=== PATIENT | male | born 1945 | race Caucasian/White ===

== ENCOUNTER → 2017-11-28 08:28 | Outpatient (CLI) | payer MEDICARE, OTHER ==
[~2017-11-28 08:28] MED LIST: ADVAIR 250/501 DISK INH; ASPIRIN EC81 M1 PO; FLOMAX0.4 MG PO; PROAIR HFA8.5 GM INH; PROTONIX40 MG PO; ZOCOR40 MG PO
== END | disposition home or self-care (01) ==
LOC: D.MRI 08:28
DX: M75.41 Impingement syndrome of right shoulder (principal)

== ENCOUNTER 2017-12-27 07:20 | Outpatient (CLI) | payer MEDICARE, OTHER ==
[2017-12-27] MEDS ORDERED: ADVAIR 250/501 DISK INH (11:36)
[2017-12-27] MEDS ORDERED: PROTONIX40 MG PO (11:37)
[2017-12-27] MEDS ORDERED: ASPIRIN EC81 M1 PO (11:37)
[2017-12-27] MEDS ORDERED: PROAIR HFA8.5 GM INH (11:37)
[2017-12-27] MEDS ORDERED: ZOCOR40 MG PO (11:38)
[2017-12-27] MEDS ORDERED: FLOMAX0.4 MG PO (11:39)
[2017-12-27 12:20] LABS: HEMATOCRIT 42.1 % (42.0-54.0); MCHC 33.3 g/dL (31.0-37.0); MCV 90.1 fL (80.0-100.0); MEAN PLATELET VOLUME 10.4 fL (7.4-10.4); RBC 4.67 10x6/uL (4.20-6.10); WBC 4.1 10x3/uL (4.8-10.8)
[2017-12-27 12:51] LABS: ANION GAP 11.6 mmol/L (8-16); CALCIUM 9.1 mg/dL (8.5-10.1); CARBON DIOXIDE 24.3 mmol/L (21.0-32.0); CREATININE - SERUM 1.7 mg/dL (0.6-1.3); POTASSIUM - SERUM 3.9 mmol/L (3.5-5.1)
[2018-01-18 11:05] VITALS: Wt 113.4 kg
== END 2017-12-27 07:21 | disposition home or self-care (01) ==
LOC: D.OPS 07:20 → EDSTATUS 12-28 12:30 → D.PAN 12-28 12:30
PROVIDERS: Anesthesiology
DX: M19.019 Primary osteoarthritis, unspecified shoulder (principal); Z01.810 Encounter for preprocedural cardiovascular examination; Z01.811 Encounter for preprocedural respiratory examination; Z01.812 Encounter for preprocedural laboratory examination; Z53.9 Procedure and treatment not carried out, unspecified reason

== ENCOUNTER 2018-01-18 09:55 | Day surgery (SDC) | payer MEDICARE, OTHER ==
[2018-01-17 15:07] LABS: HEMATOCRIT 39.5 % (42.0-54.0); HEMOGLOBIN 13.5 g/dL (13.5-17.5); MCH 30.3 pg (26.0-34.0); MCHC 34.2 g/dL (31.0-37.0); MCV 88.6 fL (80.0-100.0); MEAN PLATELET VOLUME 9.8 fL (7.4-10.4); RBC 4.46 10x6/uL (4.20-6.10); RDW 14.3 % (11.5-14.5); WBC 5.1 10x3/uL (4.8-10.8)
[2018-01-17 15:35] LABS: ANION GAP 13.3 mmol/L (8-16); CALCIUM 9.1 mg/dL (8.5-10.1); CARBON DIOXIDE 24.8 mmol/L (21.0-32.0); CREATININE - SERUM 1.7 mg/dL (0.6-1.3); POTASSIUM - SERUM 4.1 mmol/L (3.5-5.1)
[~2018-01-18] VITALS: Ht 172.7 cm; Wt 113.4 kg
--- NOTE | ~2018-01-18 | OP ---
PATIENT NAME: EMIR MORAN MEDICAL RECORD: [id number] :49 LOCATION:D.[facility] ADMISSION DATE: SURGEON: REECE KUHN MD DATE OF OPERATION: 01/18/2018 PREOPERATIVE DIAGNOSIS: Recurrent impingement syndrome of the right shoulder. POSTOPERATIVE DIAGNOSIS: Recurrent impingement syndrome of the right shoulder. PROCEDURES: 1. Right shoulder arthroscopic subacromial decompression, acromioplasty, bursectomy. 2. Right shoulder distal clavicle excision. SURGEON: Reece Kuhn MD ANESTHESIA: General. INTRAOPERATIVE COMPLICATIONS: None. SUMMARY OF PATHOLOGIC FINDINGS: The patient has combination of both subcoracoid and subacromial impingement with some excoriation of both the supraspinatus as well as the subscapularis. No full-thickness tearing is noted. OPERATIVE SUMMARY IN DETAIL: After obtaining the appropriate preoperative orthopaedic surgery consent as well as anesthetic consultation, evaluation, and clearance, the patient was brought to the operating room and placed on the operating table in the supine position. After adequate general laryngeal mask airway was administered, the patient was placed in a left lateral decubitus position. All pressure points were well padded to include down leg peroneal pad as well as axillary roll. The patient was held firmly to the operating table using the vacuum pack suction system. Right upper extremity and shoulder were then prepped and draped in routine sterile fashion. The arm was held in Arthrex arm holding device at 30 degrees of forward flexion, 30 degrees of abduction, 10 pounds of traction laterally. Arthroscopy was established in the glenohumeral joint from the posterior portal. Anterior portal was established through the anterior safe interval. Diagnostic arthroscopy did reveal the above findings. No rotator cuff tearing was noted. The glenohumeral joint was relatively normal without tears in subscap and supraspinatus on the articular side. Attention was turned to the subacromial space. While in the subacromial space, a 3.5 full radius resector in conjunction with Meally tissue ablation system was utilized to denude the undersurface of the acromion of all soft tissue elements. A 5-0 bur was used to perform acromioplasty at the level of acromioclavicular joint and release the coracoacromial ligament. Through a separate arthroscopic portal anteriorly, distal clavicle was excised for 1 cm. At this point, further diagnostic arthroscopy did show the roughening of the subscapularis. Dynamic arthroscopy showed that there was impingement of the subscapularis anteriorly and the coracoid. The coracoid was denuded with the Meally surface tissue ablation system. The bur was utilized to complete subcoracoid decompression. Having completed this, arthroscopy portals were closed in routine interrupted fashion using 4-0 Prolene. Sterile dressings were applied. The patient was awakened and taken to recovery room in stable condition. All final needle and sponge counts were correct. OPERATIVE REPORT [id number] EMIR MORAN TRANSINT:[id number] Voice Confirmation ID: [id number] DOCUMENT ID: [id number] 02/21/2018 Edited for right/left, dmheather. HATTIE RAMIREZ, REECE WILKS at 1356 CC: [id number] DICTATION DATE: 01/18/18 1334 MULTINEEDLE SHIRRER: 01/18/18 1407 [facility] [place] 01/18/18 [address] [place] [address]
[2018-01-18 11:05] VITALS: BP 118/99; Ht 172.7 cm; Wt 113.4 kg
[2018-01-18] MEDS ORDERED: HYDROCODONE-APA1 TAB PO (13:36)
== END 2018-01-18 15:35 | disposition home or self-care (01) ==
LOC: D.OPS 09:55 → D.PAN 18:15 → D.OPS 18:15
PROVIDERS: Anesthesiology
DX: M75.42 Impingement syndrome of left shoulder (principal); Z01.812 Encounter for preprocedural laboratory examination

== ENCOUNTER 2019-01-31 13:06 | Inpatient (IN) | payer MEDICARE, OTHER ==
[~2019-01-31] VITALS: Ht 172.7 cm; Wt 100.0 kg
[~2019-01-31 13:06] MED LIST changes: +HYDROCODONE-APA1 TAB PO; -ZOCOR40 MG PO; +ZOCOR80 MG PO
--- NOTE | 2019-01-31 13:22 | NUR ---
TRANSFER FROM ADMISSIONS BY W/C. OREINTED TO ROOM. CALL LIGHT IN REACH. WILL CONT. PLAN OF CARE.
[2019-01-31] MEDS ORDERED: K-DUR20 MEQ PO (13:50)
[2019-01-31] MEDS ORDERED: MAXZIDE 75/501 TAB PO (13:51)
[2019-01-31] MEDS ORDERED: FUROSEMIDE20 MG PO (13:51)
[2019-01-31 13:54] VITALS: BP 121/78; BMI 33.5
[2019-01-31 14:11] LABS: BASOPHILS 0.2 % (0-2); EOSINOPHILS 0.7 % (0-7); HEMATOCRIT 45.8 % (42.0-54.0); HEMOGLOBIN 16.5 g/dL (13.5-17.5); IMMATURE GRANULOCYTES 0.5 % (0-5); LYMPHOCYTES 6.9 % (15-50); MCH 31.1 pg (26.0-34.0); MCV 86.3 fL (80.0-100.0); MEAN PLATELET VOLUME 10.8 fL (7.4-10.4); NEUTROPHILS 80.7 % (40-80); RBC 5.31 10x6/uL (4.20-6.10); RDW 15.1 % (11.5-14.5); WBC 9.1 10x3/uL (4.8-10.8)
[2019-01-31 14:14] LABS: PLATELET COUNT 124 10x3/uL (130-400)
[2019-01-31 14:35] LABS: ALKALINE PHOSPHATASE 95 U/L (46-116); ALT (SGPT) 35 U/L (10-68); BILIRUBIN - TOTAL 1.34 mg/dL (0.2-1.3); CALC OSMOLALITY 283 mosm/kg (275-300); CALCIUM 8.1 mg/dL (8.5-10.1); CARBON DIOXIDE 20.4 mmol/L (21.0-32.0); CHLORIDE - SERUM 102 mmol/L (98-107); CKMB 2.5 U/L (0.0-3.6); CREATINE KINASE 229 UL (21-232); GLUCOSE 109 mg/dL (74-106); POTASSIUM - SERUM 3.1 mmol/L (3.5-5.1); PROTEIN - SERUM 5.8 g/dL (6.4-8.2); SODIUM 137 mmol/L (136-145); UREA NITROGEN 37 mg/dL (7-18); eGFR NON AFRICAN AMERICAN 35 mL/min (90-120)
[2019-01-31 14:36] LABS: TROPONIN-I < 0.017 ng/mL (0.000-0.060)
[2019-01-31 15:59] LABS: AMYLASE - SERUM 40 U/L (25-115); LIPASE 256 U/L (73-393)
--- NOTE | 2019-01-31 17:50 | NUR ---
REFUSES SCDS AT THIS TIME.
--- NOTE | 2019-01-31 19:09 | NUR ---
RESUMING PATIENT CARE. PATIENT IS ALERT AND ORIENTED, RESTING COMFORTABLY IN BED. RESPIRATIONS ARE EVEN AND UNLABORED. NO S/S OF DISTRESS. NO C/O PAIN. CALL LIGHT WITHIN REACH. WILL CPOC.
[2019-01-31 20:00] VITALS: BP 134/71
[2019-01-31 20:01] LABS: CKMB 2.1 U/L (0.0-3.6); CREATINE KINASE 208 UL (21-232); TROPONIN-I < 0.017 ng/mL (0.000-0.060)
[2019-02-01] VITALS: BP 111/76
[2019-02-01 02:13] LABS: BASOPHILS 0 % (0-2); EOSINOPHILS 0.3 % (0-7); HEMATOCRIT 43.8 % (42.0-54.0); HEMOGLOBIN 15.5 g/dL (13.5-17.5); IMMATURE GRANULOCYTES 0.5 % (0-5); LYMPHOCYTES 5.7 % (15-50); MCH 30.6 pg (26.0-34.0); MCHC 35.4 g/dL (31.0-37.0); MCV 86.6 fL (80.0-100.0); MEAN PLATELET VOLUME 10.8 fL (7.4-10.4); NEUTROPHILS 91.5 % (40-80); PLATELET COUNT 112 10x3/uL (130-400); RBC 5.06 10x6/uL (4.20-6.10)
[2019-02-01 02:17] LABS: WBC 6.4 10x3/uL (4.8-10.8)
[2019-02-01 02:33] LABS: ALBUMIN 2.7 g/dL (3.4-5.0); ALKALINE PHOSPHATASE 93 U/L (46-116); ALT (SGPT) 38 U/L (10-68); BILIRUBIN - DIRECT 0.21 mg/dL (0.00-0.30); BILIRUBIN - INDIRECT 0.66 mg/dL (0.00-1.00); BILIRUBIN - TOTAL 0.87 mg/dL (0.2-1.3); CALCIUM 8.5 mg/dL (8.5-10.1); CARBON DIOXIDE 22.3 mmol/L (21.0-32.0); CHLORIDE - SERUM 102 mmol/L (98-107); CKMB 1.7 U/L (0.0-3.6); CREATINE KINASE 184 UL (21-232); CREATININE - SERUM 2.2 mg/dL (0.6-1.3); MAGNESIUM - SERUM 2.2 mg/dL (1.8-2.4); PROTEIN - SERUM 6.2 g/dL (6.4-8.2); SODIUM 137 mmol/L (136-145); TROPONIN-I 0.023 ng/mL (0.000-0.060); UREA NITROGEN 38 mg/dL (7-18); eGFR NON AFRICAN AMERICAN 31 mL/min (90-120)
[2019-02-01 02:35] LABS: CALC OSMOLALITY 287 mosm/kg (275-300); GLUCOSE 189 mg/dL (74-106); PHOSPHOROUS 1.4 mg/dL (2.5-4.9)
[2019-02-01 04:00] VITALS: BP 115/65
[2019-02-01 08:37] VITALS: BP 120/76
[2019-02-01 11:00] VITALS: BMI 33.4
[2019-02-01 11:55] LABS: AMYLASE - SERUM 42 U/L (25-115); LIPASE 260 U/L (73-393)
[2019-02-01 12:08] VITALS: BP 136/76
[2019-02-01 17:16] VITALS: BP 121/64
[2019-02-01 20:00] VITALS: BP 122/58
[2019-02-02] VITALS: BP 124/65
[2019-02-02 04:00] VITALS: BP 135/84
[2019-02-02 05:38] LABS: BASOPHILS 0 % (0-2); EOSINOPHILS 0 % (0-7); HEMATOCRIT 40.1 % (42.0-54.0); HEMOGLOBIN 13.8 g/dL (13.5-17.5); IMMATURE GRANULOCYTES 0.2 % (0-5); LYMPHOCYTES 3.7 % (15-50); MCH 29.7 pg (26.0-34.0); MCHC 34.4 g/dL (31.0-37.0); MCV 86.4 fL (80.0-100.0); MONOCYTES 3.3 % (2-11); NEUTROPHILS 92.8 % (40-80); RBC 4.64 10x6/uL (4.20-6.10); RDW 14.9 % (11.5-14.5); WBC 12.6 10x3/uL (4.8-10.8)
[2019-02-02 05:39] LABS: PLATELET COUNT 102 10x3/uL (130-400)
[2019-02-02 05:54] LABS: MAGNESIUM - SERUM 2.2 mg/dL (1.8-2.4)
[2019-02-02 05:57] LABS: PHOSPHOROUS 2.9 mg/dL (2.5-4.9)
--- NOTE | 2019-02-02 07:15 | NUR ---
RECEIVED PT IN BED AAOX4 GENERALIZED WEAKNESS NOTED RESP UNLABORED SKIN W/D DENIES ANY NEEDS AT THIS TIME
[2019-02-02 08:13] VITALS: BP 142/79
[2019-02-02 12:57] LABS: ALBUMIN 2.7 g/dL (3.4-5.0); ANION GAP 18.6 mmol/L (8-16); BILIRUBIN - TOTAL 0.46 mg/dL (0.2-1.3); CALCIUM 8.7 mg/dL (8.5-10.1); CARBON DIOXIDE 17.5 mmol/L (21.0-32.0); CREATININE - SERUM 1.8 mg/dL (0.6-1.3); POTASSIUM - SERUM 4.1 mmol/L (3.5-5.1); PROTEIN - SERUM 5.7 g/dL (6.4-8.2)
[2019-02-02 13:18] VITALS: BP 126/78
[2019-02-02 17:19] VITALS: BP 138/72
--- NOTE | 2019-02-02 19:51 | NUR ---
INITIAL ROUNDS AND ASSESSMENT COMPLETED. PT RESTING IN BED. NO DISTRESS. CALL LIGHT IN REACH. SEE ASSESSMENT. CALL LIGHT IN REACH.
[2019-02-02 20:00] VITALS: BP 125/56
--- NOTE | 2019-02-02 20:22 | NUR ---
BEDTIME MEDS GIVEN. PT RESTING WITH NO DISTRESS. FEELS TIRED AND ONLY LIKE HE IS MINIMALLY IMPROVING. CALL LIGHT IN REACH. NEW ABT UP AND INFUSING.
--- NOTE | 2019-02-02 20:39 | NUR ---
REMOVED PIV TO LEFT A/C DUE TO NO LONGER PATENT. PT STILL HAS IV TO RIGHT WRIST WITH NS @ 75ML/HR INFUSING AND IV ABT NOW. HS SNACK PROVIDED. PT CURRENTLY SITTING ON SIDE OF BED ENJOYING HIS SNACK.
[2019-02-03] VITALS: BP 132/63
[2019-02-03 04:00] VITALS: BP 118/65
--- NOTE | 2019-02-03 04:52 | NUR ---
PT HAS RESTED THROUGH THE NIGHT. NO CHANGE FROM INITIAL SHIFT ASSESSMENT. IVF INFUSING. MONITOR AND CPOC. CALL LIGHT IN REACH.
[2019-02-03 05:22] LABS: BASOPHILS 0 % (0-2); EOSINOPHILS 0 % (0-7); HEMATOCRIT 38.6 % (42.0-54.0); IMMATURE GRANULOCYTES 0.2 % (0-5); LYMPHOCYTES 2.6 % (15-50); MCH 29.5 pg (26.0-34.0); MCHC 33.7 g/dL (31.0-37.0); MCV 87.5 fL (80.0-100.0); MEAN PLATELET VOLUME 12.2 fL (7.4-10.4); MONOCYTES 2.2 % (2-11); RBC 4.41 10x6/uL (4.20-6.10); RDW 14.7 % (11.5-14.5); WBC 10.2 10x3/uL (4.8-10.8)
[2019-02-03 05:34] LABS: PLATELET COUNT 102 10x3/uL (130-400)
[2019-02-03 05:43] LABS: ALBUMIN 2.6 g/dL (3.4-5.0); BILIRUBIN - TOTAL 0.23 mg/dL (0.2-1.3); CALCIUM 8.1 mg/dL (8.5-10.1); CREATININE - SERUM 1.7 mg/dL (0.6-1.3); PHOSPHOROUS 3.3 mg/dL (2.5-4.9); PROTEIN - SERUM 5.1 g/dL (6.4-8.2)
--- NOTE | 2019-02-03 07:15 | NUR ---
RECEIVED PT IN BED EYES CLOSED RESP UNLABORED SKIN W/D NAD NOTED
[2019-02-03 08:51] VITALS: BP 116/62
--- NOTE | 2019-02-03 09:30 | NUR ---
INSPECTOR FLOOR SUB ASSEMBLY OFFERED PT SHOWER AND BED CHANGE PT STATED MAYBE LATER
--- NOTE | 2019-02-03 10:45 | NUR ---
PT'S DAUGHTER CAME TO THE DESK STATES HER FATHER HAS NOT HAD A BATH SINCE HE HAS BEEN HERE I ASSURED HER HIS BED WOULD BE CHANGED AND PT WOULD HAVE A BATH MIGUEL TENORIO SAY PT ALWAYS SAYS WAIT TILL LATER
--- NOTE | 2019-02-03 11:56 | NUR ---
PT HAD SHOWER TOLERATED WELL PUT SAME SHORTS BACK ON THAT HE TOOK OFF LINENS CHANGED
[2019-02-03 12:21] VITALS: BP 133/76
[2019-02-03 16:57] VITALS: BP 111/65
--- NOTE | 2019-02-03 19:52 | NUR ---
INITIAL ROUNDS AND ASSESSMENT COMPLETED. PT RESTING IN BED. NO DISTRESS. MONITOR AND CPOC.
[2019-02-03 20:15] VITALS: BP 129/60
[2019-02-04] VITALS: BP 131/59
--- NOTE | 2019-02-04 00:28 | NUR ---
ROUSES UP EASILY FOR IV SOLUMEDROL VIA LEFT A/C PIV. SALINE LOCKED IV. PT DOES NOT WANT TO BE CONNECTED TO IVF DURING THE NIGHT WHILE GOING TO THE BATHROOM. MONITOR AND CPOC.
[2019-02-04 05:18] LABS: HEMATOCRIT 38.9 % (42.0-54.0); HEMOGLOBIN 13.3 g/dL (13.5-17.5); MCH 29.9 pg (26.0-34.0); MCHC 34.2 g/dL (31.0-37.0); MCV 87.4 fL (80.0-100.0); MEAN PLATELET VOLUME 12.3 fL (7.4-10.4); RBC 4.45 10x6/uL (4.20-6.10); RDW 15.1 % (11.5-14.5); WBC 8.6 10x3/uL (4.8-10.8)
[2019-02-04 05:42] LABS: PLATELET COUNT 50 10x3/uL (130-400)
[2019-02-04 06:24] LABS: ALBUMIN 2.8 g/dL (3.4-5.0); BILIRUBIN - TOTAL 0.24 mg/dL (0.2-1.3); CARBON DIOXIDE 21.3 mmol/L (21.0-32.0); CREATININE - SERUM 1.7 mg/dL (0.6-1.3); MAGNESIUM - SERUM 2.2 mg/dL (1.8-2.4); PHOSPHOROUS 3.1 mg/dL (2.5-4.9); POTASSIUM - SERUM 4.3 mmol/L (3.5-5.1); PROTEIN - SERUM 5.7 g/dL (6.4-8.2)
[2019-02-04 07:53] VITALS: BP 123/55
[2019-02-04 08:40] LABS: LYMPHOCYTES 5 % (15-50); MONOCYTES 3 % (2-11); NEUTROPHILS 90 % (40-80); PLATELET ESTIMATE DECREASED
--- NOTE | 2019-02-04 09:50 | EC ---
PATIENT:EMIR MORAN DATE OF SERVICE: 01/31/19 SEX: M MEDICAL RECORD: [id number] DATE OF : [birth year] LOCATION:D.M2 D.211 AGE OF PATIENT: 73 ADMISSION DATE: 01/31/19 REFERRING PHYSICIAN: INTERPRETING PHYSICIAN: LLOYD DIAZ MD ECHOCARDIOGRAM REPORT ECHO CHARGES 4 ECHO COMPLETE Date: 02/01/19 CLINICAL DIAGNOSIS: ECHOCARDIOGRAPHIC MEASUREMENTS (adult normal given) AC root (d.<3.7cm) 2.5 cm LV Septum d (<1.2 cm> 0.6 cm Valve Excursion 1.3 cm LV Septum (systole) 1.1 cm Left Atria (s.<4.0cm> 3.3 cm LVPW d(<1.2cm) 1.5 cm RV (d.<2.3cm) 2.1 cm LVPW (sytole) 1.6 cm LV diastole(<5.6CM) 5.9 cm MV E-F(>70mm/sec) cm LV systole 4.9 cm LVOT Diameter 2.0 cm MV exc.(>10mm) cm Est.ejection fraction (50-75%) % DOPPLER: LVIT cm/sec A 61 cm/sec E 41 cm/sec LA cm/sec RVSP 17.4 mmHg LVOT 72 cm/sec AOP1/2T m/s Asc. Ao 89 cm/sec RVOT 87 cm/sec RA cm/sec PA 92 cm/sec AV Gradient Peak 3.2 mmHg AV Mean 2.1 mmHg AV Area 2.0 cm MV Gradient Peak 2.9 mmHg MV Mean 0.9 mmHg MV Area cm COMMENTS: Mine Utility Operator: Carlos SANTOS Extruder Operator Helper: 3 Dr. Fish TAPE# PACS Pericardial Effusion N DATE OF SERVICE: 02/01/2019 ECHOCARDIOGRAM DATE OF SERVICE: 02/01/2019 FINDINGS: 1. Left ventricular chamber size is mildly dilated. Left ventricular systolic function is mildly depressed at 45% to 50%. 2. Left atrium, right atrium, and right ventricle chamber sizes are within ECHOCARDIOGRAM REPORT [id number] EMIR MORAN normal limits. 3. Valvular structures have normal structure and motion. 4. Doppler interrogation reveals only trace mitral regurgitation, no other valvular insufficiency or stenosis, and pulmonary systolic pressure is normal estimated at 17 mmHg. 5. No evidence of pericardial effusion or left ventricular thrombus. TRANSINT:[id number] Voice Confirmation ID: [id number] DOCUMENT ID: [id number] LLOYD DIAZ MD at 0950 CC: [id number] DICTATION DATE: 02/01/19 1431 CLERICAL SPECIALIST: 02/01/19 1530 ADM IN [facility] [address] [place] [address]
--- NOTE | 2019-02-04 10:12 | NUR ---
TELEMETRY ST 109. UP AMBULATING HALLWAY WITH PT ASSIST ON RA. 02 SAT 97% WILL CONT. PLAN OF CARE.
[2019-02-04 12:20] VITALS: BP 124/57
--- NOTE | 2019-02-04 13:01 | MORECARE ---
CASE MANAGEMENT DISCHARGE SUMMARY PATIENT: EMIR MORAN UNIT: [id number] ADM DATE: 01/31/19 AGE: 73 : 47 SEX: M ROOM/BED: D.2114 AUTHOR: CINTIA SHEIKH PHYSICIAN: REFERRING PHYSICIAN: EFE SWANSON MD DATE OF SERVICE: 02/04/19 Discharge Plan Patient Name: EMIR MORAN Facility: [facility]:[place] : 1945 Planned Disposition: Home Anticipated Discharge Date: Discharge Date: Expected LOS: Initial Reviewer: [email or web address] Initial Review Date: 02/04/2019 Generated: 02/04/19 2:01 pm Patient Name: EMIR MORAN Page [id number] at 1301 All edits/amendments must be made on the electronic document DICTATION DATE: 02/04/19 1301 OAKES MACHINE OPERATOR: BARBARA 02/04/19 1301 RPT#: [id number] DC DATE: STATUS: ADM IN [facility] [address] [place] [address] END OF REPORT
--- NOTE | 2019-02-04 13:05 | NUR ---
NEW IV STARTED TO LEFT AC BY ANJANA RIVERA RN AND FLUSHED WITH NS. LINE IS PATENT.
--- NOTE | 2019-02-04 13:11 | MORECARE ---
CASE MANAGEMENT DISCHARGE SUMMARY PATIENT: EMIR MORAN UNIT: [id number] ADM DATE: 01/31/19 AGE: 73 : 47 SEX: M ROOM/BED: D.2884 AUTHOR: KORI,DOC PHYSICIAN: REFERRING PHYSICIAN: EFE SWANSON MD DATE OF SERVICE: 02/04/19 Discharge Plan Patient Name: EMIR MORAN Facility: [facility]:[place] : 1945 Planned Disposition: Home Anticipated Discharge Date: Discharge Date: Expected LOS: Initial Reviewer: [email or web address] Initial Review Date: 02/04/2019 Generated: 02/04/19 2:10 pm Comments DCP- Discharge Planning Updated by [email or web address]: Francy Martines on 02/04/19 12:[address] Patient Name: EMIR MORAN Admission Status: Elective Accout number: [id number] Admission Date: 01-31-2019 : 1945 Admission Diagnosis:DEHYDRATION Attending: EFE SWANSON Current LOS: 4 Anticipated DC Date: Planned Disposition: Home Primary Insurance: MEDICARE A & B Discharge Planning Comments: CM met with patient to complete initial dc planning assessment. CM educated patient on the CM role and verbal consent given by patient to complete assessment. CM verified patient's address, phone number, and emergency contact phone numbers. Patient lives at home alone and reports he is independent in his care. At discharge patient plans to return home and feels this is a safe discharge. CM discussed availability of home health, rehab services, and medical equipment. Patient denied known discharge needs at this time.. . CM will continue to follow and will assist as needed with dc plans/needs. Shipper Receiver: Francy Martines DCPIA - Discharge Planning Initial Assessment Updated by [email or web address]: Francy Martines on 02/04/19 1:02 pm * Is the patient Alert and Oriented? Yes * How many steps to enter\exit or inside your home? 3-4 * PCP [facility] * Pharmacy [facility] * Preadmission Environment Home Alone * ADLs Independent * Equipment Oxygen * Other Equipment nebulizer * List name and contact numbers for known caregivers / representatives who currently or will assist patient after discharge: Park pts daughter [phone] * Verbal permission to speak to the caregivers and representatives has been obtained from the patient. N/A * Additional services required to return to the preadmission environment? No * Can the patient safely return to the preadmission environment? Yes * Has this patient been hospitalized within the prior 30 days at any hospital? No Last DP export: 02/04/19 12:01 pm Patient Name: EMIR MORAN Page [id number] at 1311 All edits/amendments must be made on the electronic document DICTATION DATE: 02/04/19 1310 CONTROL DIRECTOR: BARBARA 02/04/19 1310 RPT#: [id number] DC DATE: STATUS: ADM IN [facility] [address] [place] [address] END OF REPORT
--- NOTE | 2019-02-04 14:16 | CN ---
PATIENT NAME:EMIR MORAN MEDICAL RECORD: [id number] : 49 LOCATION:D. D.2114 ADMIT DATE: 01/31/19 ACCOUNT: [id number] CONSULTING PHYSICIAN: MANUEL ROBIN MD REFERRING PHYSICIAN: EFE SWANSON MD DATE OF CONSULTATION: 01/31/2019 HISTORY OF PRESENT ILLNESS: A 73-year-old gentleman with known history of coronary artery disease, status post stenting in the past. He has a history of chronic kidney disease and obstructive pulmonary disease, admitted with chest pain, somewhat atypical, midsternal, not reminiscent of his angina. He does have a history of dyslipidemia. Also noted to have elevated LFTs. 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 We are asked to see him concerning his cardiovascular status. PAST MEDICAL HISTORY: Includes; 1. History of coronary artery disease. 2. Obstructive pulmonary disease. 3. Dyslipidemia. 4. Cesar's esophagus. MEDICATIONS: Typically, include Protonix 40 mg p.o. daily, Lasix 20 daily, HCTZ/HCT 75/20 daily, aspirin 81 daily, simvastatin 80 daily, and albuterol two puffs q. 6 p.r.n. ALLERGIES: PENICILLIN, DOXYCYCLINE, AND CARVEDILOL. SOCIAL HISTORY: Nonsmoker and nondrinker. No set exercise program. REVIEW OF SYSTEMS: The patient reports easy bruising but reports no swollen glands. The patient reports no fever, no night sweats, no significant weight gain, no significant weight loss. No significant exercise tolerance. The patient reports no dry eyes, no irritation, no vision change. Patient reports no difficulty hearing and no ear pain. Patient reports no frequent nose bleeds or nose and sinus problems. Patient reports on arm pain on exertion. No shortness of breath while lying down. No history of heart murmur. Patient reports no cough, no wheezing or coughing up blood. Patient reports no abdominal pain, no vomiting. Normal appetite. No diarrhea and not vomiting blood. No nausea and no constipation. Patient reports no incontinence. No difficulty urinating. No hematuria. No increased frequency. Patient reports no muscle aches. No weakness, no arthralgias, no back pain. No swelling of the extremities. Patient reports no abnormal mole, no jaundice, no rashes. Reports no loss of consciousness. No weakness and no numbness. No seizures, dizziness, or headaches. The patient reports no depression, no sleep disturbance, feeling safe in a relationship and no alcohol abuse. Patient reports on fatigue. Reports no runny nose or sinus pressure. No itching, no hives, and no frequent sneezing. PHYSICAL EXAMINATION: GENERAL: Pleasant gentleman, in no acute distress, appears stated age. HEENT: Normocephalic and atraumatic. NECK: No JVD or bruit. HEART: Regular. II/ systolic ejection murmur. LUNGS: Good air excursion. ABDOMEN: Soft and nontender. CONSULT REPORT [id number] EMIR MORAN EXTREMITIES: Pulses are actually well preserved at 2+ with no edema. DIAGNOSTIC DATA: ECG shows left axis deviation but no acute ST-T changes. IMPRESSION: Chest pain. This is somewhat atypical and not reminiscent to the patient of his angina. May be little intravascularly volume depleted. By daughter's report, he has taken extra Lasix and Dyazide as well. Agree with hydration. We will check echocardiographic study. Further recommendations based on above. TRANSINT:[id number] Voice Confirmation ID: [id number] DOCUMENT ID: [id number] MANUEL ROBIN MD at 1416 CC: [id number] DICTATION DATE: 01/31/19 1636 CENTRAL STERILIZATION TECHNICIAN: 01/31/[address] [facility] [address] [place] [address]
--- NOTE | 2019-02-04 15:51 | NUR ---
NURSING MANAGER ASSISTS TO SHOWER. URINE SPECIMEN COLLECTED AND TAKEN TO LAB. WILL MONITOR.
[2019-02-04 16:09] LABS: APPEARANCE CLEAR (CLEAR); BILIRUBIN NEGATIVE (NEGATIVE); COLOR YELLOW (YELLOW); GLUCOSE NEGATIVE (NEGATIVE); KETONE NEGATIVE (NEGATIVE); NITRITE NEGATIVE (NEGATIVE); PROTEIN NEGATIVE (NEGATIVE); SPECIFIC GRAVITY 1.015 (1.005-1.020); UROBILINOGEN NORMAL (NORMAL)
--- NOTE | 2019-02-04 17:09 | MORECARE ---
CASE MANAGEMENT DISCHARGE SUMMARY PATIENT: EMIR MORAN UNIT: [id number] ADM DATE: 01/31/19 AGE: 73 : 47 SEX: M ROOM/BED: D.4584 AUTHOR: KORI,DOC PHYSICIAN: REFERRING PHYSICIAN: EFE SWANSON MD DATE OF SERVICE: 02/04/19 Discharge Plan Patient Name: EMIR MORAN Facility: [facility]:[place] : 1945 Planned Disposition: Home Anticipated Discharge Date: Discharge Date: Expected LOS: Initial Reviewer: [email or web address] Initial Review Date: 02/04/2019 Generated: 02/04/19 6:08 pm DCP- Discharge Planning Updated by [email or web address]: Francy Martines on 02/04/19 12:[address] Patient Name: EMIR MORAN Admission Status: Elective Accout number: [id number] Admission Date: 01-31-2019 : 1945 Admission Diagnosis:DEHYDRATION Attending: EFE SWANSON Current LOS: 4 Anticipated DC Date: Planned Disposition: Home Primary Insurance: MEDICARE A & B Discharge Planning Comments: CM met with patient to complete initial dc planning assessment. CM educated patient on the CM role and verbal consent given by patient to complete assessment. CM verified patient's address, phone number, and emergency contact phone numbers. Patient lives at home alone and reports he is independent in his care. At discharge patient plans to return home and feels this is a safe discharge. CM discussed availability of home health, rehab services, and medical equipment. Patient denied known discharge needs at this time.. . CM will continue to follow and will assist as needed with dc plans/needs. District Representative: Francy Martines DCPIA - Discharge Planning Initial Assessment Updated by [email or web address]: Francy Martines on 02/04/19 1:02 pm * Is the patient Alert and Oriented? Yes * How many steps to enter\exit or inside your home? 3-4 * PCP [facility] * Pharmacy [facility] * Preadmission Environment Home Alone * ADLs Independent * Equipment Oxygen * Other Equipment nebulizer * List name and contact numbers for known caregivers / representatives who currently or will assist patient after discharge: Park pts daughter [phone] * Verbal permission to speak to the caregivers and representatives has been obtained from the patient. N/A * Additional services required to return to the preadmission environment? No * Can the patient safely return to the preadmission environment? Yes * Has this patient been hospitalized within the prior 30 days at any hospital? No Last DP export: 02/04/19 12:10 pm Patient Name: EMIR MORAN Page [phone] at 1709 All edits/amendments must be made on the electronic document DICTATION DATE: 02/04/191707 PRIMARY MONTESSORI TEACHER: BARBARA 02/04/191707 RPT#: [id number] DC DATE: STATUS: ADM IN [facility] [address] [place] [address] END OF REPORT
--- NOTE | 2019-02-04 19:06 | NUR ---
RESUMING PATIENT CARE. PATIENT IS ALERT AND ORIENTED RESTING IN BED. PATIENT CONTINUES ON 2L NC PRN FOR COMFORT. RESPIRATIONS ARE EVEN AND UNLABORED. DENIES NEEDS AT THIS TIME. NO S/S OF DISTRESS. NO C/O PAIN. CALL LIGHT WITHIN REACH. WILL CPOC.
[2019-02-04 20:00] VITALS: BP 126/57
[2019-02-05] VITALS (7 sets, daily range): BP systolic 107–138; BP diastolic 63–86; Ht 172.7 cm; Wt 100.0 kg
[2019-02-05 06:36] LABS: CREATININE - SERUM 1.8 mg/dL (0.6-1.3); PHOSPHOROUS 3.2 mg/dL (2.5-4.9)
[2019-02-05 06:37] LABS: ANION GAP 12.5 mmol/L (8-16); BILIRUBIN - TOTAL 0.37 mg/dL (0.2-1.3); POTASSIUM - SERUM 4.5 mmol/L (3.5-5.1)
[2019-02-05 06:38] LABS: ALBUMIN 2.8 g/dL (3.4-5.0); PROTEIN - SERUM 5.7 g/dL (6.4-8.2)
[2019-02-05 07:27] LABS: ERYTHROCYTE SEDIMENTATION RATE 6 mm/hr (0-20)
[2019-02-05 07:37] LABS: BASOPHILS 0 % (0-2); EOSINOPHILS 0.1 % (0-7); HEMATOCRIT 38.7 % (42.0-54.0); IMMATURE GRANULOCYTES 0.4 % (0-5); LYMPHOCYTES 5.2 % (15-50); MCH 29.9 pg (26.0-34.0); MCHC 33.6 g/dL (31.0-37.0); MONOCYTES 3.6 % (2-11); NEUTROPHILS 90.7 % (40-80); RBC 4.35 10x6/uL (4.20-6.10); RDW 15.4 % (11.5-14.5); WBC 6.8 10x3/uL (4.8-10.8)
[2019-02-05 07:42] LABS: PLATELET COUNT 30 10x3/uL (130-400)
--- NOTE | 2019-02-05 09:52 | NUR ---
PLATELET COUN CALLED TO GISELE JUARES. NEW ORDERS GIVEN.
--- NOTE | 2019-02-05 10:10 | NUR ---
UP AMBULATING WITH PT ASSIST.
[2019-02-05 10:12] LABS: BASOPHILS 0 % (0-2); EOSINOPHILS 0 % (0-7); HEMATOCRIT 38.7 % (42.0-54.0); HEMOGLOBIN 13.1 g/dL (13.5-17.5); IMMATURE GRANULOCYTES 1.2 % (0-5); LYMPHOCYTES 4.2 % (15-50); MCH 29.6 pg (26.0-34.0); MCHC 33.9 g/dL (31.0-37.0); MCV 87.6 fL (80.0-100.0); MEAN PLATELET VOLUME 12.3 fL (7.4-10.4); MONOCYTES 3.1 % (2-11); NEUTROPHILS 91.5 % (40-80); RBC 4.42 10x6/uL (4.20-6.10); RDW 15.2 % (11.5-14.5); WBC 7.6 10x3/uL (4.8-10.8)
[2019-02-05 10:15] LABS: PLATELET COUNT 28 10x3/uL (130-400)
[2019-02-05 10:43] LABS: ANISOCYTOSIS OCC; PLATELET ESTIMATE DECREASED
[2019-02-05 10:48] LABS: APTT 25.9 SECONDS (22.8-39.4); INR 1.06 (0.85-1.17); PROTIME 13.3 SECONDS (11.6-15.0)
[2019-02-05 10:51] LABS: D-DIMER-QUANTITATIVE 1.35 ug/mLFEU (0.20-0.54)
[2019-02-05 19:55] LABS: BASOPHILS 0.1 % (0-2); EOSINOPHILS 0 % (0-7); HEMATOCRIT 38.7 % (42.0-54.0); HEMOGLOBIN 13.4 g/dL (13.5-17.5); IMMATURE GRANULOCYTES 1.6 % (0-5); LYMPHOCYTES 4.1 % (15-50); MCHC 34.6 g/dL (31.0-37.0); MCV 86.8 fL (80.0-100.0); MEAN PLATELET VOLUME 11.7 fL (7.4-10.4); MONOCYTES 3.8 % (2-11); NEUTROPHILS 90.4 % (40-80); RBC 4.46 10x6/uL (4.20-6.10); RDW 14.9 % (11.5-14.5)
[2019-02-05 19:56] LABS: PLATELET COUNT 20 10x3/uL (130-400)
--- NOTE | 2019-02-05 20:16 | NUR ---
PAGED DR SNYDER TO UPDATE ON PLT COUNT
--- NOTE | 2019-02-05 20:18 | NUR ---
DR. SNYDER UPDATED ON PLT COUNT. NO ORDERS OBTAINED AT THIS TIME
--- NOTE | 2019-02-05 20:38 | NUR ---
RESUMING PATIENT CARE. PATIENT RESTING COMFORTABLY IN BED, RESPIRATIONS ARE EVEN AND UNLABORED. NO S/S OF DISTRESS. DENIES NEEDS AT THIS TIME. CALL LIGHT WITHIN REACH. WILL CPOC.
[2019-02-06] VITALS: BP 137/69
[2019-02-06 04:00] VITALS: BP 129/67
[2019-02-06 05:27] VITALS: BP 139/67
[2019-02-06 06:09] LABS: ALBUMIN 2.9 g/dL (3.4-5.0); ANION GAP 15.4 mmol/L (8-16); BILIRUBIN - TOTAL 0.44 mg/dL (0.2-1.3); CALCIUM 9.1 mg/dL (8.5-10.1); CARBON DIOXIDE 23.5 mmol/L (21.0-32.0); CREATININE - SERUM 1.8 mg/dL (0.6-1.3); POTASSIUM - SERUM 4.9 mmol/L (3.5-5.1); PROTEIN - SERUM 5.6 g/dL (6.4-8.2)
--- NOTE | 2019-02-06 09:00 | NUR ---
DR. DUTTON AWARE OF LOW PLATELET COUNT. DR. DUTTON AT BS. WILL CONT. PLAN OF CARE.
[2019-02-06 09:27] LABS: BASOPHILS 0 % (0-2); EOSINOPHILS 0 % (0-7); HEMATOCRIT 38.8 % (42.0-54.0); HEMOGLOBIN 13.1 g/dL (13.5-17.5); IMMATURE GRANULOCYTES 1.5 % (0-5); LYMPHOCYTES 5.6 % (15-50); MCH 29.8 pg (26.0-34.0); MCHC 33.8 g/dL (31.0-37.0); MCV 88.2 fL (80.0-100.0); MONOCYTES 3.9 % (2-11); WBC 7.3 10x3/uL (4.8-10.8)
[2019-02-06 09:29] LABS: PLATELET COUNT 20 10x3/uL (130-400)
[2019-02-06 09:40] VITALS: BP 134/73
--- NOTE | 2019-02-06 09:52 | NUR ---
TELEMETRY SR. UP AMBULATING WITH PT ASSIST. WILL CONT. PLAN OF CARE.
--- NOTE | 2019-02-06 13:02 | NUR ---
Nutrition follow-up: Diet: Consistent CHO PO intake 75-100% of meals Labs reviewed Wt: 220# +BM RDN following.
[2019-02-06 13:18] VITALS: BP 105/50
--- NOTE | 2019-02-06 14:00 | NUR ---
AMBULATES HALLWAY WITH FAMILY.
[2019-02-06 14:04] LABS: PATH REVIEW PERIPHERAL SMEAR REVIEWED
[2019-02-06 18:52] VITALS: BP 97/48
--- NOTE | 2019-02-06 19:27 | NUR ---
RESUMING PATIENT CARE. PATIENT IS ALERT AND ORIENTED, WALKING AROUND PATIENT ROOM. RESPIRATIONS EVEN AND UNLABORED. NO S/S OF DISTRESS. NO C/O PAIN. DENIES NEEDS AT THIS TIME. CALL LIGHT WITHIN REACH.
[2019-02-07 00:30] VITALS: BP 127/59
[2019-02-07 04:00] VITALS: BP 120/61
--- NOTE | 2019-02-07 07:30 | NUR ---
RECEIVED PT IN BED AAOX4 RESP UNLABORED SKIN W/D PT DENIES ANY NEEDS AT THIS TIME
[2019-02-07 07:39] LABS: ALBUMIN 2.8 g/dL (3.4-5.0); ANION GAP 12.4 mmol/L (8-16); BILIRUBIN - TOTAL 0.41 mg/dL (0.2-1.3); CALCIUM 8.7 mg/dL (8.5-10.1); CREATININE - SERUM 1.8 mg/dL (0.6-1.3); POTASSIUM - SERUM 4.4 mmol/L (3.5-5.1); PROTEIN - SERUM 5.4 g/dL (6.4-8.2)
[2019-02-07 08:27] VITALS: BP 132/69
[2019-02-07 09:09] LABS: HEPATITIS C ANTIBODY <0.1 S/CO RAT (0.0-0.9)
[2019-02-07 11:03] LABS: BASOPHILS 0.2 % (0-2); EOSINOPHILS 0.1 % (0-7); HEMATOCRIT 39.5 % (42.0-54.0); HEMOGLOBIN 13.4 g/dL (13.5-17.5); IMMATURE GRANULOCYTES 3.7 % (0-5); LYMPHOCYTES 12.9 % (15-50); MCHC 33.9 g/dL (31.0-37.0); MCV 88.4 fL (80.0-100.0); MONOCYTES 7.3 % (2-11); NEUTROPHILS 75.8 % (40-80); RBC 4.47 10x6/uL (4.20-6.10); RDW 15.3 % (11.5-14.5); WBC 8.9 10x3/uL (4.8-10.8)
[2019-02-07 11:04] LABS: PLATELET COUNT 17 10x3/uL (130-400)
[2019-02-07 11:51] VITALS: BP 126/75
[2019-02-07 15:55] VITALS: BP 123/66
[2019-02-07 20:00] VITALS: BP 120/68
[2019-02-08] VITALS: BP 114/67
[2019-02-08 04:00] VITALS: BP 142/65
[2019-02-08 06:00] LABS: BASOPHILS 0.1 % (0-2); EOSINOPHILS 0 % (0-7); HEMATOCRIT 39.2 % (42.0-54.0); HEMOGLOBIN 13.3 g/dL (13.5-17.5); IMMATURE GRANULOCYTES 3.8 % (0-5); LYMPHOCYTES 4.3 % (15-50); MCH 29.9 pg (26.0-34.0); MCHC 33.9 g/dL (31.0-37.0); MCV 88.1 fL (80.0-100.0); NEUTROPHILS 89.8 % (40-80); RBC 4.45 10x6/uL (4.20-6.10); RDW 15.1 % (11.5-14.5); WBC 9.5 10x3/uL (4.8-10.8)
[2019-02-08 06:15] LABS: PLATELET COUNT 8 10x3/uL (130-400)
[2019-02-08 06:30] LABS: ALBUMIN 2.6 g/dL (3.4-5.0); ANION GAP 12.7 mmol/L (8-16); BILIRUBIN - TOTAL 0.51 mg/dL (0.2-1.3); CALCIUM 8.4 mg/dL (8.5-10.1); CARBON DIOXIDE 24.7 mmol/L (21.0-32.0); CREATININE - SERUM 1.9 mg/dL (0.6-1.3); POTASSIUM - SERUM 4.4 mmol/L (3.5-5.1); PROTEIN - SERUM 5.3 g/dL (6.4-8.2)
--- NOTE | 2019-02-08 07:15 | NUR ---
RECEIVED PT IN BED EYES CLOSED RESP UNLABORED SKIN W/D BAD NOTED
[2019-02-08 07:19] LABS: APTT 23.8 SECONDS (22.8-39.4); INR 1.03 (0.85-1.17)
[2019-02-08 08:36] LABS: PLATELET ESTIMATE DECREASED
[2019-02-08 08:37] LABS: ANISOCYTOSIS OCC
[2019-02-08 08:38] VITALS: BP 136/63
[2019-02-08 11:30] VITALS: BP 130/73
[2019-02-08 14:48] VITALS: BP 132/64
[2019-02-08 15:59] LABS: BASOPHILS 0.1 % (0-2); EOSINOPHILS 0 % (0-7); HEMOGLOBIN 13.6 g/dL (13.5-17.5); IMMATURE GRANULOCYTES 2.1 % (0-5); LYMPHOCYTES 2.9 % (15-50); MCV 88.1 fL (80.0-100.0); MEAN PLATELET VOLUME 12.7 fL (7.4-10.4); MONOCYTES 2.6 % (2-11); NEUTROPHILS 92.3 % (40-80); RBC 4.54 10x6/uL (4.20-6.10)
[2019-02-08 16:01] LABS: WBC 12.9 10x3/uL (4.8-10.8)
[2019-02-08 16:05] LABS: PLATELET COUNT 39 10x3/uL (130-400)
--- NOTE | 2019-02-08 16:07 | NUR ---
CALLED PTL RESULTS OF [address] DUTTON NO NEW ORDERS
--- NOTE | 2019-02-08 19:29 | NUR ---
RESUMING PATIENT CARE. PATIENT IS ALERT AND ORIENTED, RESTING COMFORTABLY IN BED. RESPIRATIONS ARE EVEN AND UNLABORED. PATIENT RECEIVING SCHEDULED BREATHING TREATMENT AT THIS TIME. NO S/S OF DISTRESS. NO C/O PAIN. CALL LIGHT WITHIN REACH. WILL CPOC.
--- NOTE | 2019-02-08 23:39 | NUR ---
PATIENT RESTING COMFORTABLY IN BED. RESPIRATIONS ARE EVEN AND UNLABORED. NO S/S OF DISTRESS. NO C/O PAIN. CALL LIGHT WITHIN REACH. WILL CPOC.
[2019-02-09] VITALS: BP 122/58; BP 127/59
--- NOTE | 2019-02-09 03:40 | NUR ---
PATIENT RESTING COMFORTABLY. RESPIRATIONS ARE EVEN AND UNLABORED. NO S/S OF DISTRESS. CALL LIGHT WITHIN REACH. WILL CPOC.
[2019-02-09 04:00] VITALS: BP 107/56
[2019-02-09 05:04] LABS: HEMATOCRIT 37.1 % (42.0-54.0); HEMOGLOBIN 12.5 g/dL (13.5-17.5); MCH 29.6 pg (26.0-34.0); MCHC 33.7 g/dL (31.0-37.0); MCV 87.9 fL (80.0-100.0); MEAN PLATELET VOLUME 13.1 fL (7.4-10.4); RBC 4.22 10x6/uL (4.20-6.10); RDW 14.9 % (11.5-14.5); WBC 10.8 10x3/uL (4.8-10.8)
[2019-02-09 05:09] LABS: ANION GAP 11.8 mmol/L (8-16); CALCIUM 8.3 mg/dL (8.5-10.1); CARBON DIOXIDE 26.1 mmol/L (21.0-32.0); POTASSIUM - SERUM 3.9 mmol/L (3.5-5.1)
[2019-02-09 05:10] LABS: PLATELET COUNT 32 10x3/uL (130-400)
[2019-02-09 05:26] LABS: LYMPHOCYTES 4 % (15-50); MONOCYTES 3 % (2-11); NEUTROPHILS 90 % (40-80); PLATELET ESTIMATE DECREASED
[2019-02-09 09:32] VITALS: BP 129/65
[2019-02-09 11:00] VITALS: BP 119/75
--- NOTE | 2019-02-09 12:14 | NUR ---
TELEMETRY SR. RESP UL ON 2L NC. IV PATENT. FAMILY AT BS. CALL LIGHT IN REACH. WILL CONT. PLAN OF CARE.
--- NOTE | 2019-02-09 14:00 | NUR ---
PLATELETS COMPLETED WITHOUT ADVERSE REACTIONS NOTED.
[2019-02-09 15:00] VITALS: BP 128/70
[2019-02-09 16:05] LABS: BASOPHILS 0 % (0-2); EOSINOPHILS 0 % (0-7); HEMATOCRIT 38.5 % (42.0-54.0); HEMOGLOBIN 12.9 g/dL (13.5-17.5); IMMATURE GRANULOCYTES 1.3 % (0-5); LYMPHOCYTES 1.6 % (15-50); MCH 29.7 pg (26.0-34.0); MCHC 33.5 g/dL (31.0-37.0); MCV 88.7 fL (80.0-100.0); MEAN PLATELET VOLUME 10.8 fL (7.4-10.4); MONOCYTES 2.2 % (2-11); NEUTROPHILS 94.9 % (40-80); RBC 4.34 10x6/uL (4.20-6.10); RDW 14.8 % (11.5-14.5); WBC 8.7 10x3/uL (4.8-10.8)
[2019-02-09 16:06] LABS: PLATELET COUNT 37 10x3/uL (130-400)
[2019-02-09 19:51] VITALS: BP 127/57
--- NOTE | 2019-02-09 20:09 | NUR ---
INITIAL ROUNDS COMPLETED AT 1914 HRS. PT DENIED ANY DISCOMFORT. ASSESSMENT COMPLETED AT 1954 HRS. SR PER CMHR 77. PT LETHARGIC. OPENS EYES TO VERBAL STIMULI, ANSWERS QUESTIONS APPROPRIATELY AND FOLLOWS COMMANDS BUT GOES BACK TO SLEEP. IV TO R HAND WITH NS AT 75CC/HR. IV PATENT. O2 1LNC. L LUNG WITH INSP AND SEXP WHEEZES. R LOBE DIMINISHED IN BASES. ACTIVE BOWEL SOUNDS. MEI. SR UP X2, CALL LIGHT WITHIN REACH.
--- NOTE | 2019-02-09 21:32 | NUR ---
PM MEDS GIVEN. PT DENIES ANY DISCOMFORT. CALL LIGHT WITHIN REACH.
--- NOTE | 2019-02-09 23:44 | NUR ---
PT RESTING WITH EYES CLOSED. RESP EVEN AND REGULAR. SR UP X2, CALL LIGHT WITHIN REACH.
--- NOTE | 2019-02-10 01:45 | NUR ---
PT RESTING WITH EYES CLOSED. RESP EVEN AND REGULAR. SR UP X2, CALL LIGHT WITHIN REACH.
--- NOTE | 2019-02-10 04:04 | NUR ---
PT AWAKE; DENIES ANY DISCOMFORT. CALL LIGHT WITHIN REACH.
[2019-02-10 04:30] VITALS: BP 122/62
[2019-02-10 05:12] LABS: BASOPHILS 0 % (0-2); EOSINOPHILS 0 % (0-7); HEMATOCRIT 35.8 % (42.0-54.0); HEMOGLOBIN 11.9 g/dL (13.5-17.5); IMMATURE GRANULOCYTES 1.3 % (0-5); LYMPHOCYTES 2.3 % (15-50); MCH 29.1 pg (26.0-34.0); MCHC 33.2 g/dL (31.0-37.0); MCV 87.5 fL (80.0-100.0); MEAN PLATELET VOLUME 11.9 fL (7.4-10.4); MONOCYTES 1.8 % (2-11); NEUTROPHILS 94.6 % (40-80); RBC 4.09 10x6/uL (4.20-6.10); RDW 14.9 % (11.5-14.5)
[2019-02-10 05:15] LABS: PLATELET COUNT 34 10x3/uL (130-400)
[2019-02-10 05:25] LABS: ANION GAP 13.2 mmol/L (8-16); CALCIUM 8.1 mg/dL (8.5-10.1); CARBON DIOXIDE 23.7 mmol/L (21.0-32.0); CREATININE - SERUM 1.8 mg/dL (0.6-1.3); POTASSIUM - SERUM 3.9 mmol/L (3.5-5.1)
--- NOTE | 2019-02-10 06:55 | NUR ---
VSS THROUGHOUT NIGHT. SR PER CM. PT DENIED ANY DISCOMFORT. NEEDS MET; WILL CONTINUE TO MONITOR.
[2019-02-10 10:09] VITALS: BP 138/72
--- NOTE | 2019-02-10 14:13 | NUR ---
PLATELETS COMPLETED WITHOUT ADVERSE REACTIONS NOTED. WILL CONT. TO MONITOR.
[2019-02-10 19:02] VITALS: BP 131/59
[2019-02-10 19:06] VITALS: BP 135/65
[2019-02-10 20:00] VITALS: BP 124/69
--- NOTE | 2019-02-10 22:34 | NUR ---
INITIAL ROUNDS COMPLETED AT 1910 HRS. PT DENIED ANY DISCOMFORT. ASSESSMENT COMPLETED AT 1945 HRS. VSS. SR PER CM HR 90. ALERT AND ORIENTED TO PERSON, PLACE AND TIME. MEI. IV TO R HAND WITH NS AT 75C/HR. IV PATENT. LUNGS DIMINISHED IN BASES BILAT. BRUISES NOTED TO BILAT ARMS. PM MEDS GIVEN CRUSHED IN PUDDING. PT CURENTLY WATCHING TV. SR UP X2, CALL LIGHT WITHIN REACH.
[2019-02-11] VITALS (13 sets, daily range): BP systolic 127–158; BP diastolic 55–86
--- NOTE | 2019-02-11 00:32 | NUR ---
PT RESTING WITH EYES CLOSED. RESP EVEN AND REGULAR. SR UP X2, CALL LIGHT WITHIN REACH.
--- NOTE | 2019-02-11 02:03 | NUR ---
PT RESTING WITH EYES CLOSED. RESP EVEN AND REGULAR. SR UP X2, CALL LIGHT WITHIN REACH.
--- NOTE | 2019-02-11 04:34 | NUR ---
PT AWAKE; STATES FEELS BETTER THIS AM. CALL LIGHT WITHIN REACH.
[2019-02-11 05:28] LABS: BASOPHILS 0.1 % (0-2); EOSINOPHILS 0 % (0-7); HEMATOCRIT 36.7 % (42.0-54.0); IMMATURE GRANULOCYTES 1.1 % (0-5); MCH 29.1 pg (26.0-34.0); MCHC 32.7 g/dL (31.0-37.0); MCV 88.9 fL (80.0-100.0); MEAN PLATELET VOLUME 11.6 fL (7.4-10.4); NEUTROPHILS 94.8 % (40-80); RBC 4.13 10x6/uL (4.20-6.10); RDW 14.9 % (11.5-14.5); WBC 7.6 10x3/uL (4.8-10.8)
[2019-02-11 05:37] LABS: ANION GAP 11.1 mmol/L (8-16); CALCIUM 8.1 mg/dL (8.5-10.1); CARBON DIOXIDE 23.8 mmol/L (21.0-32.0); CREATININE - SERUM 1.8 mg/dL (0.6-1.3); POTASSIUM - SERUM 3.9 mmol/L (3.5-5.1)
[2019-02-11 05:45] LABS: PLATELET COUNT 42 10x3/uL (130-400)
--- NOTE | 2019-02-11 06:23 | NUR ---
VSS THROUGHOUT NIGHT. PT STATES FEELS MUCH BETTER THIS AM. PLTS UP TO 42. NEEDS MET; WILL CONTINUE TO MONITOR.
--- NOTE | 2019-02-11 07:15 | NUR ---
RECEIVED PT IN BED AROUSES EASILY PT DENIES ANY NEEDS OR DISCOMFORT AT THUIS TIME [facility] WILL BE GOING TO GET CT GUIDED BONE MARROW BIOPSY
[2019-02-11 07:31] LABS: APTT 24.3 SECONDS (22.8-39.4); INR 1.1 (0.85-1.17); PROTIME 13.7 SECONDS (11.6-15.0)
--- NOTE | 2019-02-11 08:37 | NUR ---
TO RADIOLOGY VIA BED FOR PROCEDURE
--- NOTE | 2019-02-11 19:51 | NUR ---
RESUMING PATIENT CARE. PATIENT IS ALERT AND ORIENTED, SITTING UP IN BED. RESPIRATIONS ARE EVEN AND UNLABORED. NO S/S OF DISTRESS. NO C/O PAIN. CALL LIGHT WITHIN REACH. WILL CPOC.
[2019-02-12] VITALS: BP 121/52
[2019-02-12 04:30] VITALS: BP 106/58
[2019-02-12 06:11] LABS: ANION GAP 13.7 mmol/L (8-16); CALCIUM 8.3 mg/dL (8.5-10.1); CARBON DIOXIDE 23.2 mmol/L (21.0-32.0); CREATININE - SERUM 1.9 mg/dL (0.6-1.3); POTASSIUM - SERUM 3.9 mmol/L (3.5-5.1)
[2019-02-12 06:12] LABS: BASOPHILS 0 % (0-2); EOSINOPHILS 0 % (0-7); HEMATOCRIT 36.9 % (42.0-54.0); HEMOGLOBIN 11.9 g/dL (13.5-17.5); IMMATURE GRANULOCYTES 0.9 % (0-5); LYMPHOCYTES 1.9 % (15-50); MCH 29.1 pg (26.0-34.0); MCHC 32.2 g/dL (31.0-37.0); MCV 90.2 fL (80.0-100.0); MONOCYTES 2.6 % (2-11); NEUTROPHILS 94.6 % (40-80); RBC 4.09 10x6/uL (4.20-6.10); RDW 15.1 % (11.5-14.5); WBC 5.8 10x3/uL (4.8-10.8)
[2019-02-12 06:54] LABS: PLATELET COUNT 17 10x3/uL (130-400)
[2019-02-12 07:02] LABS: PLATELET ESTIMATE DECREASED
--- NOTE | 2019-02-12 07:30 | NUR ---
RECEIVED PT IN BED EYES CLOSED RESP UNLABORED NAD NOTED
[2019-02-12 09:18] VITALS: BP 142/74
--- NOTE | 2019-02-12 12:09 | NUR ---
Nutrition follow-up: Visited with pt during rounds. Pt with good appetite; eating 100% of most meals Labs reviewed Wt: 220# Pt now NPO for procedure RDN following.
[2019-02-12 15:57] VITALS: BP 161/69
[2019-02-12 18:49] VITALS: BP 140/78
--- NOTE | 2019-02-12 19:31 | NUR ---
RESUMING PATIENT CARE. PATIENT IS ALERT AND ORIENTED, RESTING COMFORTABLY IN BED. RESPIRATIONS ARE EVEN AND UNLABORED. NO S/S OF DISTRESS. NO C/O PAIN. DENIES NEEDS AT THIS TIME. CALL LIGHT WITHIN REACH. WILL CPOC.
[2019-02-13] VITALS: BP 134/68
[2019-02-13 04:30] VITALS: BP 157/72
[2019-02-13 08:41] VITALS: BP 152/77
[2019-02-13 10:07] LABS: BASOPHILS 0 % (0-2); EOSINOPHILS 0 % (0-7); HEMOGLOBIN 12.4 g/dL (13.5-17.5); IMMATURE GRANULOCYTES 0.8 % (0-5); LYMPHOCYTES 1.2 % (15-50); MCHC 33.5 g/dL (31.0-37.0); MCV 89.4 fL (80.0-100.0); MEAN PLATELET VOLUME 13.7 fL (7.4-10.4); RBC 4.14 10x6/uL (4.20-6.10); RDW 14.7 % (11.5-14.5); WBC 6.6 10x3/uL (4.8-10.8)
[2019-02-13 10:09] LABS: PLATELET COUNT 26 10x3/uL (130-400)
[2019-02-13 12:42] VITALS: BP 145/57
[2019-02-13 18:15] VITALS: BP 138/68
--- NOTE | 2019-02-13 19:42 | NUR ---
RESUMING PATIENT CARE. PATIENT IS ALERT AND ORIENTED, RESTING COMFORTABLY IN BED. RESPIRATIONS ARE EVEN AND UNLABORED. NO S/S OF DISTRESS. NO C/O PAIN. DENIES NEEDS. CALL LIGHT WITHIN REACH. WILL CPOC.
[2019-02-13 20:00] VITALS: BP 138/68
[2019-02-14] VITALS: BP 120/66
[2019-02-14 04:00] VITALS: BP 123/66
[2019-02-14 07:41] LABS: BASOPHILS 0 % (0-2); EOSINOPHILS 0 % (0-7); HEMATOCRIT 34.2 % (42.0-54.0); HEMOGLOBIN 11.4 g/dL (13.5-17.5); IMMATURE GRANULOCYTES 1.3 % (0-5); LYMPHOCYTES 5.3 % (15-50); MCH 29.7 pg (26.0-34.0); MCHC 33.3 g/dL (31.0-37.0); MCV 89.1 fL (80.0-100.0); MEAN PLATELET VOLUME 11.2 fL (7.4-10.4); MONOCYTES 7.1 % (2-11); NEUTROPHILS 86.3 % (40-80); RBC 3.84 10x6/uL (4.20-6.10); RDW 14.8 % (11.5-14.5); WBC 5.5 10x3/uL (4.8-10.8)
[2019-02-14 07:44] LABS: PLATELET COUNT 38 10x3/uL (130-400)
[2019-02-14 09:43] VITALS: BP 121/53
[2019-02-14 09:58] LABS: PLATELET ESTIMATE DECREASED
[2019-02-14 09:59] LABS: ANISOCYTOSIS OCC; ROULEAUX OCC
--- NOTE | 2019-02-14 12:06 | NUR ---
TELEMETRY SR. UP IN CHAIR WITH CALL LIGHT IN REACH. WILL MONITOR NEEDS.
[2019-02-14 13:27] VITALS: BP 135/57
[2019-02-14 17:04] VITALS: BP 134/75
--- NOTE | 2019-02-14 17:37 | NUR ---
PLATETLETS COMPLETED WITHOUT ADVERSE REACTIONS NOTED.
[2019-02-14 20:00] VITALS: BP 138/63
[2019-02-15] VITALS: BP 140/64
--- NOTE | 2019-02-15 03:35 | NUR ---
PATIENT RESTING COMFORTABLY IN BED. RESPIRATIONS ARE EVEN AND UNLABORED. NO S/S OF DISTRESS. CALL LIGHT WITHIN REACH. WILL CPOC.
[2019-02-15 04:00] VITALS: BP 146/72
[2019-02-15 05:18] LABS: BASOPHILS 0 % (0-2); EOSINOPHILS 0.2 % (0-7); HEMATOCRIT 32.2 % (42.0-54.0); HEMOGLOBIN 10.7 g/dL (13.5-17.5); IMMATURE GRANULOCYTES 3.8 % (0-5); LYMPHOCYTES 8.9 % (15-50); MCH 29.6 pg (26.0-34.0); MCHC 33.2 g/dL (31.0-37.0); MEAN PLATELET VOLUME 11.8 fL (7.4-10.4); MONOCYTES 6.9 % (2-11); NEUTROPHILS 80.2 % (40-80); PLATELET COUNT 59 10x3/uL (130-400); RBC 3.62 10x6/uL (4.20-6.10); RDW 14.9 % (11.5-14.5); WBC 4.5 10x3/uL (4.8-10.8)
[2019-02-15 05:42] LABS: ALBUMIN 2.1 g/dL (3.4-5.0); ANION GAP 11.1 mmol/L (8-16); BILIRUBIN - TOTAL 0.74 mg/dL (0.2-1.3); CALCIUM 7.8 mg/dL (8.5-10.1); CARBON DIOXIDE 28.1 mmol/L (21.0-32.0); CREATININE - SERUM 1.6 mg/dL (0.6-1.3); POTASSIUM - SERUM 3.2 mmol/L (3.5-5.1); PROTEIN - SERUM 6.5 g/dL (6.4-8.2)
[2019-02-15 07:58] VITALS: BP 179/89
--- NOTE | 2019-02-15 09:38 | NUR ---
SHOWER COMPTED WITH LOCOMOTIVE OILER ASSIST.
--- NOTE | 2019-02-15 10:39 | NUR ---
UP AMBULATING WITH PT ASSIST.
[2019-02-15 11:45] VITALS: BP 134/82
[2019-02-15] MEDS ORDERED: MIRALAX17 GM PO (13:09)
[2019-02-15] MEDS ORDERED: ADVAIR 250/501 DISK INH (13:25)
[2019-02-15] MEDS ORDERED: ZOCOR80 MG PO (13:29)
[2019-02-15] MEDS ORDERED: FLOMAX0.4 MG PO (13:30)
[2019-02-15] MEDS ORDERED: HYDROCODON-ACE1 EA10 PO (13:31)
[2019-02-15] MEDS ORDERED: MAXZIDE 75/501 TAB PO (13:32)
[2019-02-15] MEDS ORDERED: K-DUR20 MEQ PO (13:32)
[2019-02-15] MEDS ORDERED: LASIX20 MG PO (13:33)
[2019-02-15 15:53] VITALS: BP 145/87
--- NOTE | 2019-02-15 17:10 | NUR ---
IV RESTARTED TO LEFT AC WITH 22 GAUGE CATH X 1 STICK AND FLUSHED WITH NS. LINE IS PATENT.
[2019-02-15 20:00] VITALS: BP 126/75
--- NOTE | 2019-02-15 20:00 | NUR ---
INITIAL ROUNDS AND ASSESSMENT COMPLETED. PT RESTING IN BED WITH NO DISTRESS. CPOC.
[2019-02-16] VITALS: BP 135/68
[2019-02-16 04:00] VITALS: BP 104/57
--- NOTE | 2019-02-16 04:09 | NUR ---
INITIAL ROUNDS AND ASSESSMENT COMPLETED. PT RESTING IN BED WITH NO DISTRESS. FAMILY IN ROOM VISITING. SR PER TELEMETRY. CPOC.
--- NOTE | 2019-02-16 04:10 | NUR ---
INITIAL ROUNDS AND ASSESSMENT COMPLETED. PT RESTING IN BED WITH NO DISTRESS. CPOC.
[2019-02-16 05:02] LABS: HEMATOCRIT 34.9 % (42.0-54.0); HEMOGLOBIN 11.4 g/dL (13.5-17.5); MCH 29.2 pg (26.0-34.0); MCHC 32.7 g/dL (31.0-37.0); MCV 89.5 fL (80.0-100.0); MEAN PLATELET VOLUME 10.3 fL (7.4-10.4); PLATELET COUNT 85 10x3/uL (130-400); RDW 14.7 % (11.5-14.5); WBC 6.5 10x3/uL (4.8-10.8)
[2019-02-16 05:15] LABS: ALBUMIN 2.4 g/dL (3.4-5.0); ANION GAP 11.1 mmol/L (8-16); BILIRUBIN - TOTAL 0.59 mg/dL (0.2-1.3); CALCIUM 7.9 mg/dL (8.5-10.1); CARBON DIOXIDE 28.4 mmol/L (21.0-32.0); CREATININE - SERUM 1.6 mg/dL (0.6-1.3); POTASSIUM - SERUM 3.5 mmol/L (3.5-5.1); PROTEIN - SERUM 6.7 g/dL (6.4-8.2)
[2019-02-16 05:23] LABS: LYMPHOCYTES 6 % (15-50); MONOCYTES 4 % (2-11); NEUTROPHILS 90 % (40-80); PLATELET ESTIMATE DECREASED
[2019-02-16 09:27] VITALS: BP 198/80
[2019-02-16 16:45] VITALS: BP 135/70
--- NOTE | 2019-02-16 19:30 | NUR ---
WOUND CULTURE OBTAINED BY MONISHA JOHNSON FROM BONE MARROW BIOPSY SITE AND SPECIMEN TAKEN TO LAB.
[2019-02-16 20:00] VITALS: BP 134/823
--- NOTE | 2019-02-16 20:13 | NUR ---
INITIAL ROUNDS AND ASSESSMENT COMPLETED. PT RESTING WITH NO DISTRESS. CPOC.
[2019-02-17] VITALS: BP 133/66; BP 152/81
--- NOTE | 2019-02-17 03:05 | NUR ---
PT RESTING IN BED WITH NO DISTRESS. CPOC. SR PER TELEMETRY. CALL LIGHT IN REACH.
[2019-02-17 03:43] LABS: ALBUMIN 2.2 g/dL (3.4-5.0); ANION GAP 10.5 mmol/L (8-16); BILIRUBIN - TOTAL 0.5 mg/dL (0.2-1.3); CALCIUM 7.9 mg/dL (8.5-10.1); CREATININE - SERUM 1.4 mg/dL (0.6-1.3); POTASSIUM - SERUM 4.5 mmol/L (3.5-5.1); PROTEIN - SERUM 6.5 g/dL (6.4-8.2)
[2019-02-17 05:38] LABS: BASOPHILS 0.1 % (0-2); EOSINOPHILS 0 % (0-7); HEMATOCRIT 36.4 % (42.0-54.0); HEMOGLOBIN 11.7 g/dL (13.5-17.5); IMMATURE GRANULOCYTES 2.2 % (0-5); LYMPHOCYTES 4.2 % (15-50); MCH 29.2 pg (26.0-34.0); MCHC 32.1 g/dL (31.0-37.0); MCV 90.8 fL (80.0-100.0); MEAN PLATELET VOLUME 11.4 fL (7.4-10.4); MONOCYTES 4.7 % (2-11); NEUTROPHILS 88.8 % (40-80); RBC 4.01 10x6/uL (4.20-6.10); RDW 14.9 % (11.5-14.5); WBC 7.2 10x3/uL (4.8-10.8)
[2019-02-17 05:42] LABS: PLATELET COUNT 42 10x3/uL (130-400)
[2019-02-17 07:00] LABS: PLATELET ESTIMATE DECREASED; PLATELET MORPHOLOGY NO PLT CLUMPS SEEN
[2019-02-17 08:44] VITALS: BP 154/104
[2019-02-17 10:16] VITALS: BP 144/73
--- NOTE | 2019-02-17 10:44 | NUR ---
RECEIVED PT IN BED AOOX4 RESP UNLABORED GENERALIZED EDEMA NOTED TO EXTREMITIES BRUISING AND ABRASIONS NOTED TO BILATERAL ARMS SALINE LOCK INTACT LAC SITE FREE OF REDNESS OR EDEMA NAD NOTWED
[2019-02-17 13:19] VITALS: BP 103/66
[2019-02-17 16:29] VITALS: BP 149/77
[2019-02-17 20:00] VITALS: BP 139/81
--- NOTE | 2019-02-17 21:59 | NUR ---
BEDTIME MEDS GIVEN WITH PUDDING TO ASSIST WITH SWALLOWING. APPLIED CALMOSEPTINE TO BUTTOCKS/CLEFT. PT HAS SMALL, SAGE SIZE SCABBED AREA TO LEFT INNER BUTTOCK.
[2019-02-18] VITALS: BP 135/75
[2019-02-18 04:13] VITALS: BP 158/82
[2019-02-18 05:19] LABS: BASOPHILS 0 % (0-2); EOSINOPHILS 0.1 % (0-7); HEMATOCRIT 37.2 % (42.0-54.0); HEMOGLOBIN 12.1 g/dL (13.5-17.5); IMMATURE GRANULOCYTES 4.5 % (0-5); LYMPHOCYTES 5.6 % (15-50); MCH 29.2 pg (26.0-34.0); MCHC 32.5 g/dL (31.0-37.0); MCV 89.9 fL (80.0-100.0); NEUTROPHILS 84.8 % (40-80); RBC 4.14 10x6/uL (4.20-6.10); WBC 8.2 10x3/uL (4.8-10.8)
[2019-02-18 05:21] LABS: ALBUMIN 2.3 g/dL (3.4-5.0); ANION GAP 9.3 mmol/L (8-16); BILIRUBIN - TOTAL 0.5 mg/dL (0.2-1.3); CALCIUM 7.9 mg/dL (8.5-10.1); CARBON DIOXIDE 28.9 mmol/L (21.0-32.0); CREATININE - SERUM 1.4 mg/dL (0.6-1.3); POTASSIUM - SERUM 4.2 mmol/L (3.5-5.1); PROTEIN - SERUM 6.7 g/dL (6.4-8.2)
[2019-02-18 05:22] LABS: PLATELET COUNT 33 10x3/uL (130-400)
--- NOTE | 2019-02-18 05:34 | NUR ---
NO CHANGE FROM INITIAL SHIFT ASSESSMENT. PT HAS RESTED THIS NIGHT. ROUSES EASILY. VOICING NO PAIN OR DISCOMFORT. BED LOW, CALL LIGHT IN REACH. SR PER TELEMETRY. NONLABORED RESPIRATIONS.
[2019-02-18 09:12] VITALS: BP 153/76
--- NOTE | 2019-02-18 09:14 | NUR ---
TELEMETRY SR. UP AMBULATING WITH PT ASSIST.
[2019-02-18 11:00] VITALS: BP 141/68
[2019-02-18 15:00] VITALS: BP 139/85
--- NOTE | 2019-02-18 19:00 | NUR ---
RESUMING PATIENT CARE. PATIENT IS ALERT AND ORIENTED, RESTING COMFORTABLY IN CHAIR. RESPIRATIONS ARE EVEN AND UNLABORED. NO S/S OF DISTRESS. NO C/O PAIN. NEEDS MET. CALL LIGHT WITHIN REACH. WILL CPOC.
[2019-02-18 20:00] VITALS: BP 137/68
[2019-02-19 00:18] VITALS: BP 137/82
[2019-02-19 04:00] VITALS: BP 144/85
[2019-02-19 06:38] LABS: HEMATOCRIT 34.2 % (42.0-54.0); HEMOGLOBIN 11.4 g/dL (13.5-17.5); MCH 29.8 pg (26.0-34.0); MCHC 33.3 g/dL (31.0-37.0); MCV 89.5 fL (80.0-100.0); MEAN PLATELET VOLUME 9.8 fL (7.4-10.4); RBC 3.82 10x6/uL (4.20-6.10); RDW 15.2 % (11.5-14.5); WBC 7.5 10x3/uL (4.8-10.8)
[2019-02-19 06:48] LABS: PLATELET COUNT 39 10x3/uL (130-400)
[2019-02-19 06:54] LABS: ALBUMIN 2.3 g/dL (3.4-5.0); ANION GAP 10.2 mmol/L (8-16); BILIRUBIN - TOTAL 0.48 mg/dL (0.2-1.3); CALCIUM 7.8 mg/dL (8.5-10.1); CARBON DIOXIDE 25.1 mmol/L (21.0-32.0); CREATININE - SERUM 1.6 mg/dL (0.6-1.3); POTASSIUM - SERUM 4.3 mmol/L (3.5-5.1); PROTEIN - SERUM 6.3 g/dL (6.4-8.2)
[2019-02-19 08:00] VITALS: BP 139/61
[2019-02-19 09:35] LABS: LYMPHOCYTES 7 % (15-50); MONOCYTES 6 % (2-11); NEUTROPHILS 87 % (40-80); PLATELET ESTIMATE DECREASED
[2019-02-19] MEDS ORDERED: PULMICORT0.5 MG/21 UPD (13:37)
--- NOTE | 2019-02-19 14:19 | MORECARE ---
CASE MANAGEMENT DISCHARGE SUMMARY PATIENT: EMIR MORAN UNIT: [id number] ADM DATE: 01/31/19 AGE: 73 : 47 SEX: M ROOM/BED: D.9924 AUTHOR: KORI,DOC PHYSICIAN: REFERRING PHYSICIAN: EFE SWANSON MD DATE OF SERVICE: 02/19/19 Discharge Plan Patient Name: EMIR MORAN Facility: [facility]:[place] : 1945 Planned Disposition: Home Anticipated Discharge Date: 02/19/19 Discharge Date: Expected LOS: 19 Initial Reviewer: SELMA Initial Review Date: 02/04/2019 Generated: 02/19/19 3:19 pm DCP- Discharge Planning Updated by [email or web address]: Francy Martines on 02/04/19 12:[address] Patient Name: EMIR MORAN Admission Status: Elective Accout number: [id number] Admission Date: 01-31-2019 : 1945 Admission Diagnosis:DEHYDRATION Attending: EFE SWANSON Current LOS: 4 Anticipated DC Date: Planned Disposition: Home Primary Insurance: MEDICARE A & B Discharge Planning Comments: CM met with patient to complete initial dc planning assessment. CM educated patient on the CM role and verbal consent given by patient to complete assessment. CM verified patient's address, phone number, and emergency contact phone numbers. Patient lives at home alone and reports he is independent in his care. At discharge patient plans to return home and feels this is a safe discharge. CM discussed availability of home health, rehab services, and medical equipment. Patient denied known discharge needs at this time.. . CM will continue to follow and will assist as needed with dc plans/needs. Ship Engineer: Francy Martines DCPIA - Discharge Planning Initial Assessment Updated by [email or web address]: Francy Martines on 02/04/19 1:02 pm * Is the patient Alert and Oriented? Yes * How many steps to enter\exit or inside your home? 3-4 * PCP Jaguar * Pharmacy [facility] * Preadmission Environment Home Alone * ADLs Independent * Equipment Oxygen * Other Equipment nebulizer * List name and contact numbers for known caregivers / representatives who currently or will assist patient after discharge: Park gusman daughter [phone] * Verbal permission to speak to the caregivers and representatives has been obtained from the patient. N/A * Additional services required to return to the preadmission environment? No * Can the patient safely return to the preadmission environment? Yes * Has this patient been hospitalized within the prior 30 days at any hospital? No Coverage Notice Reviewer: [id number] Andrae Jaime Notice Issued Date-Time: 02/19/2019 14:00 Notice Type: IM Discharge Notice Notice Delivered To: Patient Relationship to Patient: Biomedical Manager Name: Delivery Method: HAND - Hand Delivered Ashlie Days: Prior Verbal Notification: Recipient Understood Notice: Yes Recipient Signature: Yes Med Rec Note Co-signed by Attending: Coverage Notice Comment: Last DP export: 02/04/19 4:08 pm Patient Name: EMIR MORAN Page [phone] at 1419 All edits/amendments must be made on the electronic document DICTATION DATE: 02/19/191418 WEIGHT LOSS CONSULTANT: BARBARA 02/19/191418 RPT#: [id number] DC DATE: STATUS: ADM IN [facility] [address] [place] [address] END OF REPORT
--- NOTE | 2019-02-19 14:29 | MORECARE ---
CASE MANAGEMENT DISCHARGE SUMMARY PATIENT: EMIR MORAN UNIT: [id number] ADM DATE: 01/31/19 AGE: 73 : 47 SEX: M ROOM/BED: D.9094 AUTHOR: KORI,DOC PHYSICIAN: REFERRING PHYSICIAN: EFE SWANSON MD DATE OF SERVICE: 02/19/19 Discharge Plan Patient Name: EMIR MORAN Facility: [facility]:[place] : 1945 Planned Disposition: Home Anticipated Discharge Date: 02/19/19 Discharge Date: Expected LOS: 19 Initial Reviewer: [email or web address] Initial Review Date: 02/04/2019 Generated: 02/19/19 3:28 pm Comments DCP- Discharge Planning Updated by [email or web address]: Delfin Jaime on 02/19/19 1:[address] Patient Name: EMIR MORAN Encounter No: [id number] : 1945 Primary Insurance: MEDICARE A & B Anticipated DC Date: 02-19-2019 Planned Disposition: Home DCP follow-up note: CM MET WITH PT IN ROOM TO DISCUSS DISCHARGE NEEDS AND PLANNING. CM DISCUSSED AVAILABILITY OF HOME HEALTH, REHAB SERVICES AND MEDICAL EQUIPMENT. PT DENIES DISCHARGE NEEDS. FAMILY TO TRANSPORT HOME AT DISCHARGE TODAY. IMPORTANT MESSAGE FROM MEDICARE PROVIDED AND EXPLAINED. CATE Gama DCP- Discharge Planning Updated by [email or web address]: Francy Martines on 02/04/19 12:[address] Patient Name: EMIR MORAN Admission Status: Elective Accout number: [id number] Admission Date: 01-31-2019 : 1945 Admission Diagnosis:DEHYDRATION Attending: EFE SWANSON Current LOS: 4 Anticipated DC Date: Planned Disposition: Home Primary Insurance: MEDICARE A & B Discharge Planning Comments: CM met with patient to complete initial dc planning assessment. CM educated patient on the CM role and verbal consent given by patient to complete assessment. CM verified patient's address, phone number, and emergency contact phone numbers. Patient lives at home alone and reports he is independent in his care. At discharge patient plans to return home and feels this is a safe discharge. CM discussed availability of home health, rehab services, and medical equipment. Patient denied known discharge needs at this time.. . CM will continue to follow and will assist as needed with dc plans/needs. Adult Basic Studies Teacher: Francy Martines DCPIA - Discharge Planning Initial Assessment Updated by [email or web address]: Francy Martines on 02/04/19 1:02 pm * Is the patient Alert and Oriented? Yes * How many steps to enter\exit or inside your home? 3-4 * PCP Jaguar * Pharmacy [facility] * Preadmission Environment Home Alone * ADLs Independent * Equipment Oxygen * Other Equipment nebulizer * List name and contact numbers for known caregivers / representatives who currently or will assist patient after discharge: Park pts daughter [phone] * Verbal permission to speak to the caregivers and representatives has been obtained from the patient. N/A * Additional services required to return to the preadmission environment? No * Can the patient safely return to the preadmission environment? Yes * Has this patient been hospitalized within the prior 30 days at any hospital? No Coverage Notice Reviewer: [id number] Andrae Jaime Notice Issued Date-Time: 02/19/2019 14:00 Notice Type: IM Discharge Notice Notice Delivered To: Patient Relationship to Patient: Advertising Executive Name: Delivery Method: HAND - Hand Delivered Ashlie Days: Prior Verbal Notification: Recipient Understood Notice: Yes Recipient Signature: Yes Med Rec Note Co-signed by Attending: Coverage Notice Comment: Last DP export: 02/19/19 1:19 p Patient Name: EMIR MORAN Page [phone] at 1429 All edits/amendments must be made on the electronic document DICTATION DATE: 02/19/191427 LUNCH COOK: BARBARA 02/19/191427 RPT#: [id number] DC DATE: STATUS: ADM IN [facility] [address] [place] [address] END OF REPORT
--- NOTE | 2019-02-19 15:04 | NUR ---
Nutrition follow-up: Diet: regular PO intake 100% of most meals Labs reviewed WT: 220# RDN following.
--- NOTE | 2019-02-19 17:00 | NUR ---
IV AND TELEMETRY DCD. DC PLANS GIVEN. UNDERSTANDING VOICED. ESCORTED TO CAR BY W/C.
== END 2019-02-19 17:00 | disposition home or self-care (01) | DRG 641 ==
LOC: D.M2 13:06
PROVIDERS: Family Medicine; Family Medicine Adult Medicine; General Practice; Internal Medicine Gastroenterology; Internal Medicine Hematology & Oncology; Internal Medicine Nephrology; ADMIT Family Medicine; ATTEND Family Medicine
PROC: 07DR3ZX Extraction of Iliac Bone Marrow, Percutaneous Approach, Diagnostic (ICD-10-PCS; principal; 2019-02-11 08:45)
DX: E86.0 Dehydration (principal); N18.4 Chronic kidney disease, stage 4 (severe); J44.1 Chronic obstructive pulmonary disease with (acute) exacerbation; I25.110 Atherosclerotic heart disease of native coronary artery with unstable angina pectoris; N17.9 Acute kidney failure, unspecified; E80.6 Other disorders of bilirubin metabolism; R07.9 Chest pain, unspecified; D69.6 Thrombocytopenia, unspecified; D64.9 Anemia, unspecified; K76.0 Fatty (change of) liver, not elsewhere classified

== ENCOUNTER 2019-02-21 15:12 | Inpatient (IN) | payer MEDICARE, OTHER ==
[~2019-02-21] VITALS: Ht 172.7 cm; Wt 70.3 kg
[~2019-02-21 15:12] MED LIST changes: +FUROSEMIDE20 MG PO; +HYDROCODON-ACE1 EA10 PO; +K-DUR20 MEQ PO; +LASIX20 MG PO; +MAXZIDE 75/501 TAB PO; +MIRALAX17 GM PO; +PULMICORT0.5 MG/21 UPD
[2019-02-21 17:03] VITALS: BP 140/72; BMI 23.6
[2019-02-21] MEDS ORDERED: ENTRESTO 24 MG1 EACH PO (17:39)
--- NOTE | 2019-02-21 18:35 | NUR ---
PT RESTING IN BED WITH EYES OPEN CALL LIGHT IN REACH NO PROBLEMS WILL MONITER
[2019-02-21 22:49] VITALS: BP 150/65
--- NOTE | 2019-02-21 23:28 | NUR ---
PT A&O, PLEASANT, ORIENTED TO ROOM, BED CONTROLS, FLUIDS AND CALL LIGHT WITHIN REACH, ASKED FOR AND RECIEVED WALTER HOPSON CRUSHED IN PUDDING, STATED HE HAS SWALLOWING ISSUES. NO OTHER NEEDS NOTED AT THIS TIME
--- NOTE | 2019-02-22 02:39 | NUR ---
PT IN BED LOWEST POSITION, EYES CLOSED AROUSES EASILY TO VOICE, RESPIRATIONS EVEN AND UNLABORED, NO NEEDS NOTED, FLUIDS AND CALL LIGHT WITHIN REACH
[2019-02-22 07:06] LABS: ANION GAP 10.8 mmol/L (8-16); CALCIUM 8.1 mg/dL (8.5-10.1); CARBON DIOXIDE 25.4 mmol/L (21.0-32.0); CREATININE - SERUM 1.6 mg/dL (0.6-1.3); POTASSIUM - SERUM 4.2 mmol/L (3.5-5.1)
[2019-02-22 07:30] LABS: BASOPHILS 0 % (0-2); EOSINOPHILS 0.3 % (0-7); HEMATOCRIT 37.3 % (42.0-54.0); HEMOGLOBIN 12.4 g/dL (13.5-17.5); IMMATURE GRANULOCYTES 1.2 % (0-5); LYMPHOCYTES 9.7 % (15-50); MCH 29.6 pg (26.0-34.0); MCHC 33.2 g/dL (31.0-37.0); MONOCYTES 6.8 % (2-11); RBC 4.19 10x6/uL (4.20-6.10); RDW 15.4 % (11.5-14.5); WBC 6.5 10x3/uL (4.8-10.8)
[2019-02-22 07:36] LABS: PLATELET COUNT 13 10x3/uL (130-400)
[2019-02-22 08:31] VITALS: BP 143/71
[2019-02-22 09:35] LABS: PLATELET ESTIMATE DECREASED
[2019-02-22 09:38] LABS: ANISOCYTOSIS OCC; ROULEAUX OCC
[2019-02-22 15:02] VITALS: BMI 23.5
[2019-02-22 19:10] VITALS: BP 140/71
--- NOTE | 2019-02-22 19:10 | NUR ---
RECEIVED REPORT. SITTING UP IN W/C ALERT AND ORIENTED X4. DENIES ANY NEEDS OR PAIN. NO SIGNS OF DISTRESS NOTED. SHIFT ASSESSMENT COMPLETE, VS STABLE. RIGHT HAND 22G FREE OF REDNESS OR SWELLING, FLUSHES WITHOUT DIFFICULTY. CALL LIGHT WITHIN REACH, FALL PRECAUTIONS IN PLACE. WILL CONTINUE TO MONITOR
--- NOTE | 2019-02-23 00:17 | NUR ---
QUIET HOURS. LYING ON RIGHT SIDE EYES CLOSED RESTING. RR EVEN AND UNLABORED. WILL CONTINUE TO MONITOR
--- NOTE | 2019-02-23 02:45 | NUR ---
LYING IN BED ON RIGHT SIDE EYES CLOSED RESTING. RR EVEN AND UNLABORED. WILL CONTINUE TO MONITOR
[2019-02-23 14:22] VITALS: BP 150/72
--- NOTE | 2019-02-23 17:52 | NUR ---
RESTING COMFORTABLY IN BED LAYING ON SIDE. MORE OINTMENT APPLIED TO BUTTOCKS AND ENCOURAGED PT TO LAY ON SIDE AT LEAST 30 DEGREES. CALL LIGHT IN REACH
--- NOTE | 2019-02-23 19:17 | NUR ---
RECIEVED LAYING IN BED WITH EYES OPEN AND TV ON. ALERT AND ORIENTED X4. UP AD DORETHA TO TOILET. USES W/C FOR TRANSPORTATION. DSG TO [facility]. REQUESTED CALMOSEPTIN BE PUT ON HIS GLUTEAL FOLD AREA D/T EXCORIATION. BRUISES AND SCABS TO UPPER EXTREMITIES. GENERALIZED EDEMA TO LOWER EXTREMITIES. LUNG SOUND INSPIRATORY AND EXPIRATORY WHEEZES TO ALL LUNG COX. RESP EVEN AND UNLABORED. ABSX4Q. IV TO RIGHT HAND SL..DENIES ANY OTHER NEEDS AT THIS TIME.
[2019-02-23 22:20] VITALS: BP 127/62
[2019-02-24 08:00] VITALS: BP 122/63
[2019-02-24 08:53] VITALS: Ht 172.7 cm; Wt 70.3 kg
--- NOTE | 2019-02-24 10:54 | NUR ---
SITTING UP IN WC IN ROOM WATCHING TV. WALKED TO BATHROOM FOR APPLICATION OF OINTMENT TO BUTTOCKS BY NURSE. DENIES INCREASED PAIN. CALL LIGHT IN REACH
--- NOTE | 2019-02-24 14:45 | NUR ---
RELAXING IN BED, EYES CLOSED. JUST FINISHED SHOWER. BUTTOCKS STILL RED BUT OINTMENT APPLIED, ENCOURAGED TO STAY ON SIDE WHILE IN BED. CALL LIGHT IN REACH.
[2019-02-24 19:20] VITALS: BP 151/77
--- NOTE | 2019-02-24 19:20 | NUR ---
GREETED PATIENT AND INTRODUCED MYSELF. PATIENT IS LAYING IN BED WATCHING TV. STATES THAT HE IS NOT IN PAIN BUT HIS BOTTOM IS HURTING SOMEWHAT. VITAL SIGNS OBTAINED. NO FURTHER NEEDS AT THIS TIME. CALL LIGHT IN REACH.
[2019-02-25 06:59] LABS: BASOPHILS 0.1 % (0-2); EOSINOPHILS 0.4 % (0-7); HEMATOCRIT 37.9 % (42.0-54.0); HEMOGLOBIN 12.6 g/dL (13.5-17.5); IMMATURE GRANULOCYTES 1.8 % (0-5); LYMPHOCYTES 11.4 % (15-50); MCH 29.7 pg (26.0-34.0); MCHC 33.2 g/dL (31.0-37.0); MCV 89.4 fL (80.0-100.0); MEAN PLATELET VOLUME 12.5 fL (7.4-10.4); MONOCYTES 6.4 % (2-11); NEUTROPHILS 79.9 % (40-80); RBC 4.24 10x6/uL (4.20-6.10); RDW 15.5 % (11.5-14.5); WBC 7.8 10x3/uL (4.8-10.8)
[2019-02-25 07:09] LABS: PLATELET COUNT 49 10x3/uL (130-400)
[2019-02-25 07:12] LABS: ANION GAP 10.8 mmol/L (8-16); CALCIUM 8.2 mg/dL (8.5-10.1); CARBON DIOXIDE 23.5 mmol/L (21.0-32.0); CREATININE - SERUM 1.5 mg/dL (0.6-1.3); POTASSIUM - SERUM 4.3 mmol/L (3.5-5.1)
--- NOTE | 2019-02-25 07:30 | NUR ---
RESTING QUIETLY IN BED. SIDE RAILS UP X2. BED IN LOWEST POSITION. CALL LIGHT IN REACH
[2019-02-25 08:00] VITALS: BP 148/66
--- NOTE | 2019-02-25 12:58 | NUR ---
SITTING UP IN ROOM WATCHING TV. DENIES NEEDS OR C/O. WALKS BY SELF TO BATHROOM. CALL LIGHT IN REACH
--- NOTE | 2019-02-25 14:24 | NUR ---
Nutrition follow-up: Diet: Regular PO intake ~79% average of last 9 meals Labs reviewed Wt: 155# no BM charted RDN following.
--- NOTE | 2019-02-25 19:14 | NUR ---
GREETED PATIENT AND INTRODUCED MYSELF. PATIENT IS LAYING IN BED IN SUPINE POSITION. HOB AT 35 DEGREES. CURRENTLY GETTING BREATHING TREATMENT. DENIES ANY NEEDS AT THIS TIME. CALL LIGHT IN REACH.
[2019-02-25 20:05] VITALS: BP 138/67
--- NOTE | 2019-02-26 00:20 | NUR ---
PATIENT RESTING WITH EYES CLOSED. RESPIRATIONS EVEN. NO S/S OF DISTRESS. O2 AT 2L IN USE VIA NC. SR UP X 2. BED IN LOWEST POSITION. CALL LIGHT IN REACH.
[2019-02-26 08:00] VITALS: BP 131/63
--- NOTE | 2019-02-26 08:00 | NUR ---
SHIFT ASSMT COMPLETED.BREAKFAST GIVEN.
--- NOTE | 2019-02-26 19:35 | NUR ---
PT SITTING UP IN BED. CL IN REACH. DENIES NEEDS AT THIS TIME. RESP EVEN AND UNLABORED. A/O X4. O2 ON 2L VIA NC. BED IN LOW SIDE RAILS X2. 3+ EDEMA TO BILAT LEGS. STAGE 2 TO BUTTOCKS. APPLIED NICOLE PER PT REQUEST. LUNGS WHEEZES WHEN EXPIRATORY. WCTM
[2019-02-26 20:00] VITALS: BP 132/78
--- NOTE | 2019-02-27 01:07 | NUR ---
I have reviewed this patient and I concur with the Shift Assessment completed by the Licensed Practical Nurse today this shift.
--- NOTE | 2019-02-27 05:06 | NUR ---
PT RESTING QUIETLY. CL IN REACH. NO DISTRESS NOTED. BED IN LOW. RESP EVEN AND UNLABORED. WCTM
[2019-02-27 07:24] LABS: ANION GAP 10.6 mmol/L (8-16); CALCIUM 8.2 mg/dL (8.5-10.1); CARBON DIOXIDE 24.9 mmol/L (21.0-32.0); CREATININE - SERUM 1.5 mg/dL (0.6-1.3); POTASSIUM - SERUM 4.5 mmol/L (3.5-5.1)
[2019-02-27 07:31] LABS: BASOPHILS 0.2 % (0-2); EOSINOPHILS 0.1 % (0-7); HEMATOCRIT 38.1 % (42.0-54.0); HEMOGLOBIN 12.7 g/dL (13.5-17.5); IMMATURE GRANULOCYTES 4.5 % (0-5); LYMPHOCYTES 11.2 % (15-50); MCH 29.5 pg (26.0-34.0); MCHC 33.3 g/dL (31.0-37.0); MCV 88.6 fL (80.0-100.0); MEAN PLATELET VOLUME 12.4 fL (7.4-10.4); MONOCYTES 7.1 % (2-11); NEUTROPHILS 76.9 % (40-80); RDW 15.8 % (11.5-14.5); WBC 8.6 10x3/uL (4.8-10.8)
[2019-02-27 07:44] LABS: PLATELET COUNT 103 10x3/uL (130-400)
[2019-02-27 07:59] VITALS: BP 129/54
[2019-02-27] MEDS ORDERED: PREDNISONE20 MG PO (08:18)
--- NOTE | 2019-02-27 10:54 | NUR ---
CASE MANAGEMENT NOTE PATIENT DISCHARGING HOME WITH FAMILY. SPOKE WITH DAUGHTER WHO WILL TRANSPORT. [facility] TO PROVIDE THERAPY AT HOME. PATIENT HAS HOME O2 WHICH HE USES AT NIGHT ONLY. FOLLOW UP APPOINTMENTS MADE WITH DR. MEYERS AT 2:45 03/12/[address] DUTTON AT 10:45 ON 02/28/19. PATIENT CHOICE FORM AND imfm FORMS SIGNED, COPY GIVEN TO PATINE AND FILED IN CHART. Karishma Lucero, NUT PACKER [employer]
--- NOTE | 2019-03-01 14:39 | RHP ---
PATIENT: EMIR MORAN MEDICAL RECORD: [id number] ACCOUNT: [id number] LOCATION:[facility] : [birth year] ADMISSION DATE: 02/21/19 REHABILITATION HISTORY AND PHYSICAL EXAMINATION POST ADMISSION PHYSICIAN EXAMINATION DATE OF ADMISSION: 02/21/2019 ADMITTING DIAGNOSIS: Congestive heart failure myopathy. HISTORY OF PRESENT ILLNESS: The patient is a 73-year-old gentleman who has stage IV chronic kidney disease, COPD, Cesar's esophagitis, dyslipidemia, obstructive sleep apnea, obstructive pulmonary disease and recent angina. He was in the hospital from 01/31/2019 to 02/19/2019, was treated for chest pain, found to have thrombocytopenia, been receiving IVIG treatment also bone marrow biopsy, was followed by hem-onc during his stay. He was noted to be doing well with therapy during his acute hospitalization and was discharged on 02/19/2019. Since going home, he has had a physical decline, inability to ambulate with any type of distance. He is taking frequent rest breaks. He has had dyspnea on exertion. He has been seen by his PCP and felt like inpatient admission was definitely warranted in this patient. He is currently needing to be monitored closely for diuresis, CHF, I's and O's, medication adjustments, monitoring O2 sats. He is having some problems with tolerance to therapy. He has got dyspnea on exertion, shortness of breath, impaired mobility, gait disturbance proximal muscle weakness, high fall risk, deconditioning secondary to recent prolonged hospitalization, debility, and self-care deficits. These are all barriers to discharge home at this time. He lives at home alone, was independent with his ADLs and mobility prior to this. He would like to be able to return home at his prior level of functioning. COMORBIDITIES: Include acute CHF, thrombocytopenia, angina, exertional dyspnea, COPD, normocytic anemia, elevated bilirubin, elevated amylase, deconditioning, debility, impaired mobility, gait disturbance, self-care deficits and proximal muscle weakness. PAST MEDICAL HISTORY: Significant for obstructive sleep apnea, dyslipidemia, Cesar's esophagitis, allergies, sinus problems, COPD, asthma, chronic bronchitis, arthritis, chronic back pain. PAST SURGICAL HISTORY: Includes bilateral shoulder scopes and ear surgery. ALLERGIES: PENICILLIN, CARVEDILOL, DOXYCYCLINE AND VIBRAMYCIN. CURRENT MEDICATIONS: Include Entresto 24/26 a tab daily; he is on potassium 20 mEq daily; Flomax 0.4 mg daily; simvastatin 80 mg at bedtime; MiraLax 17 grams at bedtime; Brovana 15 mcg b.i.d.; budesonide 0.5 mg b.i.d.; polyethylene glycol 17 grams in 8 ounces of water daily and furosemide 20 mg as needed for swelling. HABITS: No alcohol or tobacco use. FAMILY HISTORY: Noncontributory. SOCIAL HISTORY: The patient hopes to return back home and get back to his prior level of functioning. HISTORY AND PHYSICAL [id number] EMIR MORAN REVIEW OF SYSTEMS: GENERAL: He does complain of weakness and fatigue. HEENT: Denies cold, cough, or congestion. CARDIOVASCULAR: Denies any chest pain. LUNGS: Does complain of shortness of breath with any type of activity. PHYSICAL EXAMINATION: VITAL SIGNS: Stable. He is afebrile. GENERAL: A well-developed gentleman in no acute distress, alert upon exam. HEENT: Normocephalic and atraumatic. Mucosa moist. NECK: Supple. No lymphadenopathy. LUNGS: Clear in upper egan. HEART: Regular rate and rhythm. No murmurs, rubs or gallops. ABDOMEN: Benign, nontender, nondistended. Positive bowel sounds times 4. EXTREMITIES: No clubbing, cyanosis or edema. NEUROLOGIC: He is intact. LABORATORY DATA: White count is 6.5, H&H of 12 and 37, and platelet count was noted to be 13,000. His sodium is 138, potassium 4.2, BUN and creatinine of 32 and 1.6, and blood sugar is noted to be 78. 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 The patient has potential to make improvement. We instituted the following multidisciplinary therapies including, but not limited to physical, occupational, respiratory, speech, nutritional services, prosthetics and orthotics. Given his complex medical condition and risks for more complications, rehabilitation services cannot be provided at a low level of care such as custodial facility. PLAN: 1. Admit to [facility] for intensive inpatient therapy to include the following disciplines; A. Physical therapy to improve gait, all transfer skills and bed mobility to a modified independent level. B. Occupational therapy to a modified independent level. C. Case management to assist with discharge planning and placement options. D. Nutrition to assist with nutritional needs. E. Rehabilitation nursing to assist in monitoring the patient's underlying medical condition and to assist with any type of bowel or bladder management. 2. The patient's current medication and medical care will be continued. 3. The patient will be placed on standard fall precautions. 4. Consult heme/onc to see during his stay. 5. We will watch his platelets closely and watch for any type of bleeding precautions. TRANSINT:[id number] Voice Confirmation ID: [id number] DOCUMENT ID: [id number] SIMONE notes whether there has been none or any medical/functional change since admission: - No change since preadmission screen. SIMONE attests patient continues to be appropriate for IRF: - Continues to be appropriate. HISTORY AND PHYSICAL [id number] EMIR MORAN,EDU MATUTE MD at 1439 CC: [id number] DICTATION DATE: 02/22/19 0836 PHOTOGRAPH RETOUCHER: 02/22/19 0903 DIS IN 02/27/19 [facility] [address] [place] [address]
--- NOTE | 2019-04-04 10:44 | DS ---
PATIENT:EMIR MORAN :[birth year] MEDICAL RECORD: [id number] DISCHARGE SUMMARY ADMISSION DATE: 02/21/19 DISCHARGE DATE: 02/27/19 This is a discharge dated 02/27/2019 from inpatient rehabilitation. PRIMARY DIAGNOSIS: Decreased functional ability and ability to provide activities of daily living secondary to congestive heart failure myopathy. SECONDARY DIAGNOSES: 1. ITP. 2. Thrombocytopenia. 3. Chronic kidney disease stage IV. 4. Cesar esophagitis. 5. Anemia. 6. Hyperbilirubinemia. 7. Hypokalemia. 8. Obstructive sleep apnea. 9. Hyperlipidemia. 10. Coronary artery disease. 11. Chronic back pain. 12. Arthritis. 13. Chronic obstructive pulmonary disease. CONSULTS THIS HOSPITALIZATION: Hem/Onc with Dr. Gomez. HOSPITAL COURSE: Full H and P is located elsewhere on the chart on this 73-year-old male who was admitted to inpatient rehab for physical therapy and occupational therapy to improve gait, transfer skills, bed mobility, and activities of daily living to a modified independent level. He was evaluated by PT, OT, and ST and their plans of care were followed. He required half-way care for observation and assessment and medication administration. Electrolytes were managed by protocol. He had close monitoring of platelets and actually did receive platelet transfusion during this hospital stay. He was followed by Dr. Gomez from Heme/Onc. He remained on inhaled medications for respiratory support. He was also started on prednisone by Dr. Gomez. He was cooperative with therapies, progressing towards goals. Case management was involved for discharge planning. He was considered stable for discharge on 02/27/2019 having met all of his PT, OT, and ST goals. DISCHARGE MEDICATIONS: As per discharge medication reconciliation. DISCHARGE DISPOSITION: The patient is discharged home. He will continue his current diet and level of activity. He will have [facility] for continued home half-way, PT, and OT. He will follow up with primary care and specialists as directed. At least 30 minutes was spent in this discharge activity. TRANSINT:[id number] Voice Confirmation ID: [id number] DOCUMENT ID: [id number] Dictated By: JEANNE VEE I have interviewed/examined the above patient and agree with these documented findings. DISCHARGE SUMMARY REPORT [id number] OBEYSTACY RogelEMIRMITZY BASS,EDU MATUTE MD at 1046 at 1044 CC: [id number] DICTATION DATE: 03/31/19 1627 [employer] SYSTEMS REPAIRER: 03/31/19 2308 DIS IN 02/27/19 [facility] [address] [place] [id number]
== END 2019-02-27 13:26 | disposition home health service (06) | DRG 92 ==
LOC: D.REHAB 15:12
PROVIDERS: ADMIT Emergency Medicine; ATTEND Emergency Medicine
DX: G72.89 Other specified myopathies (principal); J44.1 Chronic obstructive pulmonary disease with (acute) exacerbation; I50.9 Heart failure, unspecified; D69.6 Thrombocytopenia, unspecified; I20.9 Angina pectoris, unspecified; R06.00 Dyspnea, unspecified; D64.9 Anemia, unspecified; R53.81 Other malaise; R26.9 Unspecified abnormalities of gait and mobility; M62.81 Muscle weakness (generalized); G47.33 Obstructive sleep apnea (adult) (pediatric); M19.90 Unspecified osteoarthritis, unspecified site; I25.10 Atherosclerotic heart disease of native coronary artery without angina pectoris